=== PATIENT | female | born 1990 | race Caucasian/White ===

== ENCOUNTER 2023-06-30 20:48 | Outpatient (OUT) | payer BC, SELFPAY | END 2023-06-30 20:49 | disposition home or self-care (01) | LOC: SLEEP 20:49 | PROVIDERS: PCP Family Medicine; Visit Provider Family Medicine | DX: G47.33 Obstructive sleep apnea (adult) (pediatric) (principal); R06.83 Snoring | CPT/HCPCS: 95810 ==

== ENCOUNTER 2023-07-12 10:30 | Outpatient (OUT) | payer BC, SELFPAY ==
[2023-07-12 10:57] LABS: Basophils Percent Auto 0.6 % (0.2-2.0); Eosinophils Percent Auto 0.5 % (0.9-7.0); Hematocrit 38.5 % (36.0-48.0); Hemoglobin 12.6 g/dL (12.0-16.0); Immature Granulocytes Abs Auto 0.01 10^3/uL (0.00-0.03); Immature Granulocytes Pct Auto 0.2 % (0.0-0.5); Lymphocytes Percent Auto 30.6 % (20.5-60.0); Mean Corpuscular HGB Conc 32.7 g/dL (29.9-35.2); Mean Corpuscular Hemoglobin 29.2 pg (26.7-34.0); Mean Corpuscular Volume 89.3 fL (81.0-99.0); Mean Platelet Volume 9.6 fL (9.5-13.5); Monocytes Absolute Auto 0.5 10^3/uL (0.3-0.8); Monocytes Percent Auto 7.5 % (1.7-12.0); Neutrophils Absolute Auto 3.9 10^3/uL (1.4-6.5); Neutrophils Percent Auto 60.6 % (43.0-75.0); Platelet Count 315 10^3/uL (150-450); Red Blood Count 4.31 10^6/uL (4.20-5.40); Red Cell Distribution Width 12.9 % (11.0-15.0); White Blood Count 6.5 10^3/uL (4.0-11.0)
[2023-07-12 11:17] LABS: Estimated Average Glucose 97 mg/dL
[2023-07-12 11:30] LABS: Alanine Aminotransferase 24 U/L (14-59); Albumin Globulin Ratio 1.2; Albumin Level 3.8 g/dL (3.4-5.0); Alkaline Phosphatase 34 U/L (46-116); Anion Gap 10.5; Aspartate Amino Transferase 9 U/L (15-37); BUN Creatinine Ratio 8.3; Bilirubin Total 0.8 mg/dL (0.2-1.0); Calcium 8.3 mg/dL (8.5-10.1); Carbon Dioxide 28.9 mmol/L (21.0-32.0); Chloride 103 mmol/L (98-107); Chol HDL Ratio 2.9; Cholesterol 175 mg/dL (<=200); Estimated GFR (African America >60 (>=60); Estimated GFR (Non-African Ame >60 (>=60); Free T3 2.36 pg/mL (2.18-3.98); Globulin 3.3 g/dL; Glucose 94 mg/dL (74-106); HDL Cholesterol 60 mg/dL (40-60); LDL Cholesterol Calculated 102.8 mg/dL; Potassium 3.4 mmol/L (3.5-5.1); Sodium 139 mmol/L (136-145); Thyroid Stimulating Hormone 2.057 uIU/mL (0.358-3.740); Total Protein 7.1 g/dL (6.4-8.2); Triglycerides 61 mg/dL (<=150); VLDL CHOLESTEROL 12.2 mg/dL
[2023-07-13 12:07] LABS: Insulin 10.1 uIU/mL (2.6-24.9)
== END 2023-07-12 10:31 | disposition home or self-care (01) ==
LOC: LAB 10:31
PROVIDERS: PCP Family Medicine; Visit Provider Family Medicine
DX: Z00.00 Encounter for general adult medical examination without abnormal findings (principal); R73.09 Other abnormal glucose; E78.5 Hyperlipidemia, unspecified
CPT/HCPCS: 36415; 80053; 80061; 83036; 83525; 84436; 84443; 84481; 85025

== ENCOUNTER 2023-08-11 20:55 | Outpatient (OUT) | payer BC, SELFPAY | END 2023-08-11 20:56 | disposition home or self-care (01) | LOC: SLEEP 20:56 | PROVIDERS: PCP Family Medicine; Visit Provider Family Medicine | DX: G47.33 Obstructive sleep apnea (adult) (pediatric) (principal); F51.01 Primary insomnia | CPT/HCPCS: 95811 ==

== ENCOUNTER 2024-10-15 10:23 | Outpatient (OUT) | payer BC, SELFPAY ==
--- NOTE | 2024-10-15 10:42 | XR_ITS ---
The [address] [address] Patient Name: JW MARSH MRN: [id number] date: 1990 Sex: F Assigned Patient Location: LAB Current Patient Location: Accession/Order Number: [id number] Exam Date: 10/15/2024 10:35 Report Date: 10/18/2024 08:21 At the request of: NÉSTOR WHEELER Procedure: XR cervical spine 2-3V EXAMINATION: XR cervical spine 2-3V HISTORY: Neck Pain COMPARISON: No relevant comparison available. FINDINGS: BONES: Normal. No significant spondylosis, scoliosis, fracture, or visible bony lesion. DISC SPACES: Normal. No significant disc height narrowing, subluxation, or endplate abnormality. PARASPINOUS: Negative. No paraspinous abnormality is seen. OTHER: Negative. XR/XR cervical spine 2-3V IMPRESSION: No acute radiographic abnormality Electronically authenticated by: JUNITO ANAYA Date: 10/18/2024 08:21
--- OUTSIDE RECORDS SUMMARY | 2024-10-15 10:43 | XMS_ITS | CCD ---
Author Organization [facility] Care Team Providers Care Applications Intern Name Role Phone LINDY, DR MOORE Admitting Unavailable NILL, DR MOORE Attending Unavailable HOY, DR PALM Primary Care Unavailable NILL, DR MOORE Consulting Unavailable HOY, DR PALM Admitting Unavailable HOY, DR PALM Attending Unavailable HOY, DR PALM Primary Care Unavailable HOY, DR PALM Consulting Unavailable HOY, DR PALM Admitting Unavailable HOY, DR PALM Attending Unavailable HOY, DR PALM Primary Care Unavailable HOY, DR PALM Consulting Unavailable REFUGIO GUILLAUME Attending Unavailable ZALTJulio César, SHANTELL Referring Unavailable REFUGIO GUILLAUME Attending Unavailable CONSTANCE, SHANTELL Referring Unavailable MEINERT, RHEA P Referring Unavailable LIAM, NÉSTOR M Primary Care Unavailable NÉSTOR WARD M Primary Care Unavailable MEINERT, RHEA Referring Unavailable MEINERT, RHEA Referring Unavailable HOY, NÉSTOR M Primary Care Unavailable MEINERT, RHEA Referring Unavailable HOY, NÉSTOR M Primary Care Unavailable Problems Active Problems Problem Classification Problem Date Documented Da te Episodic/Chronic Menstrual disorders (1 source) Irregular menstruation, unspecified; Translations: [Irregular menstruation, unspecified] Onset: 07-14-2024 Chronic Nonmalignant breast conditions (3 sources) Nipple discharge; Translations: [Mastodynia] Onset: 05-11-2024 Episodic Unclassified (2 sources) CONTACT W/AND (SUSP) EXPOS COVID-19; Translations: [CONTACT W/AND (SUSP) EXPOS COVID-19] Onset: 04-14-2022 Viral infection (1 source) COVID-19; Translations: [COVID-19] Onset: 04-14-2022 Past or Other Problems Problem Classification Problem Date Documented Da te Episodic/Chronic Deficiency and other anemia (1 source) Anemia, unspecified; Translations: [ANEMIA UNSPECIFIED] Onset: 05-20-2021 Episodic Diabetes mellitus without complication (1 source) Other abnormal glucose; Translations: [OTHER ABNORMAL GLUCOSE] Onset: 05-20-2021 Episodic Malaise and fatigue (4 sources) Other fatigue; Translations: [OTHER FATIGUE] Onset: 05-11-2021 Episodic Other and unspecified benign neoplasm (4 sources) Benign lipomatous neoplasm of skin and subcutaneous tissue of head, face and neck; Translations: [MELE LIPOMAT COURTNEY SKIN SUBQ HEAD NECK] Onset: 06-13-2021 Episodic Residual codes; unclassified (1 source) Insomnia, unspecified; Translations: [INSOMNIA UNSPECIFIED] Onset: 05-20-2021 Episodic Unclassified (1 source) CONTACT W/AND (SUSP) EXPOS COVID-19; Translations: [CONTACT W/AND (SUSP) EXPOS COVID-19] Onset: 04-11-2022 Results Test Name Value Interpretation Reference Range Facility US NON OB TRANSVAGINALon US NON OB TRANSVAGINAL EXAMINATION: PELVIC ULTRASOUND 08/20/2024 2:43 pm TECHNIQUE: Transabdominal and transvaginal pelvic ultrasound using B-mode/melgar scaled imaging and color flow Doppler was obtained. COMPARISON: None HISTORY: ORDERING SYSTEM PROVIDED HISTORY: Irregular menses TECHNOLOGIST PROVIDED HISTORY: abnormal cycles, rule out PCOS FINDINGS: UTERUS: Anteverted with appropriate size, measuring 8.9 cm x 5.1 cm x 4.3 cm. Caesarean section scarring in anterior lower segment. Heterogeneous myometrium with indistinct junctional margins, patchy fanned-shaped posterior shadowing, and scattered punctate echogenic islands. No discrete myometrial lesion. Closed cervix with tiny nabothian cysts. Mildly dilated bilateral periuterine veins. ENDOMETRIAL STRIPE: Normal thickness, measuring 0.7 cm. RIGHT OVARY: Normal size, measuring 3.5 cm x 2.1 cm x 2.4 cm. Normal degree of vascularity. A few (10 or less) subcentimeter, subcapsular follicles (O-RADS 1). LEFT OVARY: Normal size, measuring 2.4 cm x 2.4 cm x 2.2 cm. Normal degree of vascularity. A few (10 or less) subcentimeter, subcapsular follicles (O-RADS 1). FREE FLUID: None visualized. IMPRESSION: 1. Myometrial features that can be seen with diffuse adenomyosis. 2. Normal sonographic appearance of the ovaries. Although several subcentimeter follicles are present in each ovary, the appearance is not overly suggestive of polycystic ovarian disease. 3. Mildly dilated periuterine veins can be seen with pelvic congestion syndrome. Interpreted by: Teresa Ron MD Signed by: Teresa Ron MD 08/21/24 Final result Normal [facility] US PELVIS COMPLETEon 024 US PELVIS COMPLETE EXAMINATION: PELVIC ULTRASOUND 08/20/2024 2:43 pm TECHNIQUE: Transabdominal and transvaginal pelvic ultrasound using B-mode/melgar scaled imaging and color flow Doppler was obtained. COMPARISON: None HISTORY: ORDERING SYSTEM PROVIDED HISTORY: Irregular menses TECHNOLOGIST PROVIDED HISTORY: abnormal cycles, rule out PCOS FINDINGS: UTERUS: Anteverted with appropriate size, measuring 8.9 cm x 5.1 cm x 4.3 cm. Caesarean section scarring in anterior lower segment. Heterogeneous myometrium with indistinct junctional margins, patchy fanned-shaped posterior shadowing, and scattered punctate echogenic islands. No discrete myometrial lesion. Closed cervix with tiny nabothian cysts. Mildly dilated bilateral periuterine veins. ENDOMETRIAL STRIPE: Normal thickness, measuring 0.7 cm. RIGHT OVARY: Normal size, measuring 3.5 cm x 2.1 cm x 2.4 cm. Normal degree of vascularity. A few (10 or less) subcentimeter, subcapsular follicles (O-RADS 1). LEFT OVARY: Normal size, measuring 2.4 cm x 2.4 cm x 2.2 cm. Normal degree of vascularity. A few (10 or less) subcentimeter, subcapsular follicles (O-RADS 1). FREE FLUID: None visualized. IMPRESSION: 1. Myometrial features that can be seen with diffuse adenomyosis. 2. Normal sonographic appearance of the ovaries. Although several subcentimeter follicles are present in each ovary, the appearance is not overly suggestive of polycystic ovarian disease. 3. Mildly dilated periuterine veins can be seen with pelvic congestion syndrome. Interpreted by: Teresa Ron MD Signed by: Teresa Ron MD 08/21/24 Final result Normal [facility] T3 FREE, T4 FREE AND TSHon 09-28-2023 Free T3 [Mass/Vol] 3.69 pg/mL Normal (2.32 - 6.09) [facility] Comment on above: Order Comment: FACIL ITY: [facility] [id number] Result Comment: HEMO LYSIS PRESENT; VALIDITY OF RESULTS SHOULD BE DETERMINED BY CLINICAL JUDGEMENT. Performed By: #### T SHT34, TESTOS #### [facility] [address] [facility], [address] T4 - FREE 1.11 UG/DL Normal (0.78 - 2.35) [facility] Comment on above: Order Comment: FACIL ITY: [facility] [id number] Performed By: #### T SHT34, TESTOS #### [facility] [address] [facility], [address] TSH Qn 1.77 m[IU]/L Normal (0.470 - 4.680) [facility] Comment on above: Order Comment: FACIL ITY: [facility] [id number] Performed By: #### T SHT34, TESTOS #### [facility] [address] [facility], [address] TOTAL TESTOSTERONEon 11-21-2 024 Testosterone [Mass/Vol] 42.8 ng/dL Normal (5.7 - 77.0) [facility] Comment on above: Result Comment: TEST OSTERONE, TOTAL FEMLAES: NORMAL MENSTRUAL CYCLES 5.71 - 77 NG/DL MALES: AGE 20 - 49 YEARS 132 - 813 NG/DL AGE >OR= 50 YEARS 102 - 623 NG/DL Performed By: #### T SHT34, TESTOS #### [facility] [address] [facility], [address] [facility] DIGITAL DIAGNOSTIC BILATERALon 05-17-2024 [facility] DIGITAL DIAGNOSTIC BILATERAL EXAMINATION: DIAGNOSTIC DIGITAL BILATERAL BREASTS MAMMOGRAM WITH TOMOSYNTHESIS; TARGETED ULTRASOUND OF THE LEFT BREAST 05/17/2024 7:49 am; 05/17/2024 8:23 am TECHNIQUE: Diagnostic mammography of the bilateral breasts was performed with tomosynthesis. 2D standard and 3D tomosynthesis combination imaging performed through both breasts. Computer aided detection was utilized in the interpretation of this exam.; Target ultrasound of the left breast was performed. VIEWS: MLO and craniocaudal views of both breasts. COMPARISON: None. Baseline study. HISTORY: ORDERING SYSTEM PROVIDED HISTORY: Nipple discharge TECHNOLOGIST PROVIDED HISTORY: left breast pain and nipple discharge, intermittent Intermittent pain upper-outer quadrant left breast. The patient has milky left nipple discharge but only upon manual expression. No spontaneous nipple discharge. TC score 10.46 FINDINGS: Mammogram: Both breasts are composed of scattered fibroglandular density. No skin thickening, nipple contour changes, suspicious calcifications, suspicious masses, areas of architectural distortion or significant interval changes are noted. Ultrasound: Targeted ultrasonography upper-outer left breast and retroareolar area left breast was performed. Appearance is unremarkable. No cystic or solid mass lesions. No imaging correlation of the patient's intermittent pain upper outer left breast or nipple discharge left breast on expression. IMPRESSION: No evidence of malignancy. Clinical follow-up for this patient who is 34 years old. Breast tissue can be either dense or not dense. Dense tissue makes it harder to find breast cancer on a mammogram and also raises the risk of developing breast cancer. Your breast tissue is NOT DENSE. Talk to your health care provider about breast density, risk for breast cancer and your individual situation. BI-RADS 1 BIRADS: BIRADS - CATEGORY 1 Negative, no evidence of malignancy. Clinical follow-up for this 34-year-old patient. OVERALL ASSESSMENT - NEGATIVE A letter of notification will be sent to the patient regarding the results. [employer] recommends annual mammograms for women 40 years and older. Interpreted by: Lela Magaña MD Signed by: Lela Magaña MD 05/17/24 Final result Normal [facility] US BREAST LIMITED LEFTon US BREAST LIMITED LEFT EXAMINATION: DIAGNOSTIC DIGITAL BILATERAL BREASTS MAMMOGRAM WITH TOMOSYNTHESIS; TARGETED ULTRASOUND OF THE LEFT BREAST 05/17/2024 7:49 am; 05/17/2024 8:23 am TECHNIQUE: Diagnostic mammography of the bilateral breasts was performed with tomosynthesis. 2D standard and 3D tomosynthesis combination imaging performed through both breasts. Computer aided detection was utilized in the interpretation of this exam.; Target ultrasound of the left breast was performed. VIEWS: MLO and craniocaudal views of both breasts. COMPARISON: None. Baseline study. HISTORY: ORDERING SYSTEM PROVIDED HISTORY: Nipple discharge TECHNOLOGIST PROVIDED HISTORY: left breast pain and nipple discharge, intermittent Intermittent pain upper-outer quadrant left breast. The patient has milky left nipple discharge but only upon manual expression. No spontaneous nipple discharge. TC score 10.46 FINDINGS: Mammogram: Both breasts are composed of scattered fibroglandular density. No skin thickening, nipple contour changes, suspicious calcifications, suspicious masses, areas of architectural distortion or significant interval changes are noted. Ultrasound: Targeted ultrasonography upper-outer left breast and retroareolar area left breast was performed. Appearance is unremarkable. No cystic or solid mass lesions. No imaging correlation of the patient's intermittent pain upper outer left breast or nipple discharge left breast on expression. IMPRESSION: No evidence of malignancy. Clinical follow-up for this patient who is 34 years old. Breast tissue can be either dense or not dense. Dense tissue makes it harder to find breast cancer on a mammogram and also raises the risk of developing breast cancer. Your breast tissue is NOT DENSE. Talk to your health care provider about breast density, risk for breast cancer and your individual situation. BI-RADS 1 BIRADS: BIRADS - CATEGORY 1 Negative, no evidence of malignancy. Clinical follow-up for this 34-year-old patient. OVERALL ASSESSMENT - NEGATIVE A letter of notification will be sent to the patient regarding the results. [employer] recommends annual mammograms for women 40 years and older. Interpreted by: Lela Magaña MD Signed by: Lela Magaña MD 05/17/24 Final result Normal [facility] FREE T3on 05-11-2024 Free T3 [Mass/Vol] 4.23 pg/mL High 2.50-3.90 [facility] Comment on above: Performed By: #### 3 016-3, 3051-0, 3024-7, 2842-3, 8099-4 #### [facility] ([id number]) [address] [place] [address] FREE T4on 05-11-2024 Free T4 [Mass/Vol] 0.94 ng/dL Normal 0.61-1.60 [facility] Comment on above: Performed By: #### 3 016-3, 3051-0, 3024-7, 2842-3, 8099-4 #### [facility] ([id number]) [address], [address] [place] [address] Prolactin [Mass/Vol]on 05-11 PROLACTIN 6.5 ng/mL Normal 3.3-26.7 [facility] Comment on above: Performed By: #### 3 016-3, 3051-0, 3024-7, 2842-3, 8099-4 #### [facility] ([id number]) [address], [address] [place] [address] THYROPEROXIDASE ABon 024 TPO Ab Qn 19 [IU]/mL High <10 [facility] Comment on above: Performed By: #### 3 016-3, 3051-0, 3024-7, 2842-3, 8099-4 #### [facility] ([id number]) [address], [address] [place] [address] TSH Qnon 05-11-2024 TSH 0.97 uIU/mL Normal 0.49-4.67 [facility] Comment on above: Performed By: #### 3 016-3, 3051-0, 3024-7, 2842-3, 8099-4 #### [facility] ([id number]) [address] [place] [address] Covid-19 PCR (CVDTB)on SARS-CoV-2 (COVID-19) RNA MANUELA+probe Ql (Unsp spec) Detected Critically abnormal NOT DETECTED [facility] Comment on above: Result Comment: This test is not yet approved or cleared by the [place] FDA. When there are no FDA-approved or cleared tests available, and other criteria are met, FDA can make tests available under an emergency access mechanism called an Emergency Use Authorization (EUA). The EUA for this test is supported by the [employer] and Human Service's declaration that circumstances exist to justify the emergency use of in vitro diagnostics for the detection and/or diagnosis of the virus that causes COVID-19. This EUA will remain in effect for the duration of the COVID-19 declaration justifying emergency of IVDs, unless it is terminated or revoked by the FDA (after which the test may no longer be used). Performed By: #### [facility] #### [facility] [address] [address] [address] Isael Simon Ambulatory Clinical Summaryo n 06-22-2021 Ambulatory Clinical Summary {[id number] Normal [facility] General Surgery Office/Clini c Noteon 06-22-2021 General Surgery Office/Clinic Note Chief Complaint post operative follow up HPI Staff 9 day post operative follow up post excisional biopsy lipoma left posterior neck. Incision well approximated without bleeding or drainage. History of Present Illness s/p excision recurrent left neck lipoma, doing well, mild soreness, no drainage. pathology consistent with lipoma. Review of Systems ROS - Provider Constitutional: no fever, no sweats, no weight loss. Eyes: no glasses, no blurred vision, no visual loss. ENMT: no dentures, no hoarseness, no swallowing difficulties, no hearing loss, no ear infection(s), no nose bleeds. Cardiovascular: normal blood pressure, no chest pain, regular heartbeat, no heart murmur. Respiratory: no shortness of breath, no cough, no asthma, no wheezing. Gastrointestinal: no nausea, no vomiting, no diarrhea, no constipation, no blood in stool, no change in bowel habits, no abdominal pain, no hepatitis. Genitourinary: no kidney stones, no urine infection, no dysuria. Musculoskeletal: no pain, no weakness. Skin: no changing moles, no rash, no skin lumps. Neurologic: no seizures, no epilepsy, no headache. Psychiatric: no emotional or psychiatric problem. Heme/Lymph: no bleeding problems, no anemia, no blood clots, no transfusions. Allergy/Immunologic: no swollen lymph nodes/glands, no IV drug abuse. Other: Additional ROS info: Except as noted in the above Review of Systems and in the History of Present Illness, all other systems have been reviewed and are negative or noncontributory. Physical Exam Vitals & Measurements T: 36.2 ?C (Temporal Artery) incision: healing well, minimal induration, no erythema or drainage, no ecchymoses. Assessment/Plan 1. Lipoma of neck (D17.0: Benign lipomatous neoplasm of skin and subcutaneous tissue of head, face and neck) doing well, call with problems/questions. Follow-up No qualifying data available Problem List/Past Medical History Ongoing Anxiety BMI 29.0-29.9,adult Headache, tension-type Insomnia Lipoma of neck Tendonitis of wrist, left Historical No qualifying data Procedure/Surgical History Excision of lipoma (06/13/2021), section (05/14/2020), Acetabular augmentation, Excision of lipoma, Tonsillectomy and adenoidectomy. Medications No active medications Allergies No Known Allergies No Known Medication Allergies Social History Alcohol - Denies Alcohol Use, 05/22/2021 Substance Abuse Current, Marijuana, 1-2 times per week, 05/22/2021 Tobacco Never (less than 100 in lifetime) Tobacco Use:. Never Smokeless Tobacco Use:., 06/22/2021 Family History Renal failure syndrome: Father. Immunizations Vaccine Date Status SARS-CoV-2 (COVID-19) mRNA BNT-162b2 vax 05/19/2021 Recorded SARS-CoV-2 (COVID-19) mRNA BNT-162b2 vax 04/28/2021 Recorded Normal [facility] Comment on above: Result Comment: Elec tronically Signed By: LINDY OSULLIVAN, Teresa Hickman\Date and Time Signed: 06/22/21 10:23 EDT Pathology Noteon 06-18-2021 Pathology Note [id number] #1.00CD:127 Normal [facility] Operative Reporton Operative Report [id number] #1.00CD:127 Normal [facility] Provider Letter [facility] [place] [facility] [place] 2021 JOSEPH MOISE, [address] [place] [address] Re: JW MARSH Date of : 1990 Thank you for your referral of Jw Marsh who was seen on consultation on May 22, 2021, for nodule posterior neck. An excision is planned. I have enclosed my consultation note for your review. I will be happy to follow Jw. Sincerely, Teresa Tovar MD General Surgery [facility] Consent for Procedure/Surger yon 05-24-2021 Consent for Procedure/Surgery [id number] #1.00CD:127 Normal [facility] Consenton 05-23-2021 Consent [id number]#1.00CD:127 Normal [facility] Historical Records Officeon 05-22-2021 Historical Records Office [id number] #1.00CD:127 Normal [facility] CBC AUTO DIFFon 05-11-2021 BASO # 0.0 103/ul Normal 0.0-0.1 [facility] Comment on above: Performed By: #### C BC #### [facility] [address] [id number] Sabrina Felisa Basophils/100 WBC (Bld) 0.6 % Normal 0.2-2.0 [facility] Comment on above: Performed By: #### C BC #### [facility] [address] [id number] Sabrina Felisa EO # 0.1 103/ul Normal 0.0-0.7 [facility] Comment on above: Performed By: #### C BC #### [facility] [address] [id number] Sabrina Felisa Eosinophils/100 WBC (Bld) 0.8 % Critically low 0.9-7.0 [facility] Comment on above: Performed By: #### C BC #### [facility] [address] [address] Sabrina Felisa Erythrocyte distribution width (RBC) [Ratio] 12.5 % Normal 11.0-15.0 [facility] Comment on above: Performed By: #### C BC #### [facility] [address] [place], [place] [phone] Sabrina Felisa Hematocrit (Bld) [Volume fraction] 43.1 % Normal 36.0-48.0 [facility] Comment on above: Performed By: #### C BC #### [facility] [address] [place] [address] Sabrina Felisa Hemoglobin (Bld) [Mass/Vol] 14.1 g/dL Normal 12.0-16.0 [facility] Comment on above: Performed By: #### C BC #### [facility] [address] [place] [address] Sabrina Felisa IG # 0.02 10e3/ul Normal 0.00-0.03 [facility] Comment on above: Performed By: #### C BC #### [facility] [address] [place] [address] Sabrina Felisa IG % 0.3 % Normal 0.0-0.5 [facility] Comment on above: Performed By: #### C BC #### [facility] [address] [place] [address] Sabrina Felisa LYMPH # 2.0 103/ul Normal 1.2-3.8 [facility] Comment on above: Performed By: #### C BC #### [facility] [address] [place] [address] Sabrina Roberto Lymphocytes/100 WBC (Bld) 27.9 % Normal 20.5-60.0 [facility] Comment on above: Performed By: #### C BC #### [facility] [address] [place], [place] [phone] Sabrinaimer Dasen MANUAL DIFF REQ NO Normal [facility] Comment on above: Performed By: #### C BC #### [facility] [address] [place], [place] [phone] Sabrina Felisa MCH (RBC) [Entitic mass] 29.3 pg Normal 26.7-34.0 [facility] Comment on above: Performed By: #### C BC #### [facility] [address] [place] [address] Sabrina Roberto MCHC (RBC) [Mass/Vol] 32.7 g/dL Normal 29.9-35.2 [facility] Comment on above: Performed By: #### C BC #### [facility] [address] [place], [place] [address] Sabrina Roberto MCV (RBC) [Entitic vol] 89.6 fL Normal 81.0-99.0 [facility] Comment on above: Performed By: #### C BC #### [facility] [address] [place], [place] [address] Sabrina Felisa MONO # 0.4 103/ul Normal 0.3-0.8 [facility] Comment on above: Performed By: #### C BC #### [facility] [address] [place], [place] [address] Sabrina Roberto Monocytes/100 WBC (Bld) 5.9 % Normal 1.7-12.0 [facility] Comment on above: Performed By: #### C BC #### [facility] [address] [place], [place] [address] Sabrina Felisa NEUT # 4.6 103/ul Normal 1.4-6.5 [facility] Comment on above: Performed By: #### C BC #### [facility] [address] [place], [place] [address] Sabrina Felisa Neutrophils/100 WBC (Bld) 64.5 % Normal 43.0-75.0 [facility] Comment on above: Performed By: #### C BC #### [facility] [address] [place], [place] [address] Sabrinaimer Roberto Platelet mean volume (Bld) [Entitic vol] 9.1 fL Critically low 9.5-13.5 [facility] Comment on above: Performed By: #### C BC #### [facility] [address] [place], [place] [address] Sabrina Felsia PLT 370 103/ul Normal 150-450 [facility] Comment on above: Performed By: #### C BC #### [facility] [address] [place], [place] [address] Sabrina Felisa RBC 4.81 106/ul Normal 4.20-5.40 [facility] Comment on above: Performed By: #### C BC #### [facility] [address] [place], [place] [address] Sabrina Roberto WBC 7.1 103/ul Normal 4.0-11.0 [facility] Comment on above: Performed By: #### C BC #### [facility] [address] [id number] Sabrina Roberto FREE THYROXINE INDEX T7on FTI 2.86 Normal [facility] Comment on above: Performed By: #### C MP, TSH, T7 #### [facility] [address] [place], [place] [address] Sabrina Roberto T3U 34.0 % Normal 23.5-40.5 [facility] [facility] Comment on above: Performed By: #### C MP, TSH, T7 #### [facility] [address] [place] [address] Sabrina Roberto T4 [Mass/Vol] 8.40 ug/dL Normal 5.53-11.00 [facility] [place] Comment on above: Performed By: #### C MP, TSH, T7 #### [facility] [address] [place], [place] [id number] Sabrina Roberto GLYCOHEMOGLOBIN A1Con 2020 ADA RECOMMENDATION ADA THERAPEUTIC TARGET 6.0 - 7.0 ACTION SUGGESTED > 7.0 Normal [facility] Comment on above: Performed By: #### A 1C #### [facility] [address] [place], [place] [id number] Sabrina Roberto Glucose [Mass/Vol] 105 mg/dL Normal [facility] Comment on above: Performed By: #### A 1C #### [facility] [address] [place], [place] [id number] Sabrina Roberto HbA1c (Bld) [Mass fraction] 5.3 % Normal <=6.0 [facility] Comment on above: Performed By: #### A 1C #### [facility] [address] [place], [place] [address] Sabrinaimer Dasen IRONon 05-11-2021 Iron [Mass/Vol] 84.0 ug/dL Normal 37.0-170.0 [facility] Comment on above: Performed By: #### I FERDINAND #### [facility] [address] [place], [place] [address] Sabrinaimer Dasen PROF 14(COMP METB)on 021 Albumin [Mass/Vol] 3.9 g/dL Normal 3.5-5.0 [facility] Comment on above: Performed By: #### C MP, TSH, T7 #### [facility] [address] [place], [place] [address] Sabrina Felisa Albumin/Globulin [Mass ratio] 1.1 {ratio} Normal [facility] Comment on above: Performed By: #### C MP, TSH, T7 #### [facility] [address] [place], [place] [address] Sabrina Felisa ALP [Catalytic activity/Vol] 52 U/L Normal 38-126 [facility] Comment on above: Performed By: #### C MP, TSH, T7 #### [facility] [address] [place], [place] [address] Sabrina Felisa ALT [Catalytic activity/Vol] 19 U/L Normal 9-52 [facility] Comment on above: Performed By: #### C MP, TSH, T7 #### [facility] [address] [place], [place] [address] Sabrina Felisa Anion gap [Moles/Vol] 13.7 mmol/L Normal [facility] Comment on above: Performed By: #### C MP, TSH, T7 #### [facility] [address] [place], [place] [address] Sabrina Felisa AST [Catalytic activity/Vol] 14 U/L Normal 14-36 [facility] Comment on above: Performed By: #### C MP, TSH, T7 #### [facility] [address] [place], [place] [address] Sabrina Felisa Bilirubin [Mass/Vol] 0.9 mg/dL Normal 0.2-1.3 [facility] Comment on above: Performed By: #### C MP, TSH, T7 #### [facility] [address] [address] Sabrina Felisa Calcium [Mass/Vol] 8.9 mg/dL Normal 8.4-10.2 [facility] Comment on above: Performed By: #### C MP, TSH, T7 #### [facility] [address] [place] [address] Sabrina Felisa Chloride [Moles/Vol] 105 mmol/L Normal 98-107 [facility] Comment on above: Performed By: #### C MP, TSH, T7 #### [facility] [address] [place] [address] Sabrina Felisa CO2 [Moles/Vol] 29.3 mmol/L Normal 22.0-30.0 [facility] Comment on above: Performed By: #### C MP, TSH, T7 #### [facility] [address] [place] [address] Sabrina Felisa Creatinine [Mass/Vol] 0.79 mg/dL Normal 0.52-1.04 [facility] Comment on above: Performed By: #### C MP, TSH, T7 #### [facility] [address] [place] [address] Sabrina Felisa EGFR-AF SWAZI =60 Normal >=60 [facility] Comment on above: Performed By: #### C MP, TSH, T7 #### [facility] [address] [place] [address] Sabrina Felisa EGFR-NON AF SWAZI >60 Normal >=60 [facility] Comment on above: Performed By: #### C MP, TSH, T7 #### [facility] [address] [place] [address] Sabrina Felisa Globulin (S) [Mass/Vol] 3.6 g/dL Normal [facility] Comment on above: Performed By: #### C MP, TSH, T7 #### [facility] [address] [place] [address] Sabrina Felisa Glucose [Mass/Vol] 97 mg/dL Normal 74-106 [facility] Comment on above: Performed By: #### C MP, TSH, T7 #### [facility] [address] [place], [place] [address] Sabrina Felisa Potassium [Moles/Vol] 4.0 mmol/L Normal 3.4-5.0 [facility] Comment on above: Performed By: #### C MP, TSH, T7 #### [facility] [address] [address] Sabrina Felisa Protein [Mass/Vol] 7.5 g/dL Normal 6.1-8.2 [facility] Comment on above: Performed By: #### C MP, TSH, T7 #### [facility] [address] [id number] Sabrina Felisa Sodium [Moles/Vol] 144 mmol/L Normal 137-145 [facility] Comment on above: Performed By: #### C MP, TSH, T7 #### [facility] [address] [place] [address] Sabrina Felisa Urea nitrogen [Mass/Vol] 7.0 mg/dL Normal 7.0-17.0 [facility] Comment on above: Performed By: #### C MP, TSH, T7 #### [facility] [address] [place] [address] Sabrina Felisa Urea nitrogen/Creatinine [Mass ratio] 8.9 mg/mg Normal [facility] Comment on above: Performed By: #### C MP, TSH, T7 #### [facility] [address] [place] [address] Sabrina Felisa TSHon 05-11-2021 TSH 1.525 uIU/mL Normal 0.470-4.680 [facility] Comment on above: Performed By: #### C MP, TSH, T7 #### [facility] [address] [place] [address] Sabrina Felisa TSH RANGE SEE BELOW Normal [facility] Comment on above: Result Comment: <0.3 4 UIU/ml HYPERTHYROID 0.34-5.60 UIU/ml EUTHYROID >5.60 UIU/ml HYPOTHYROID Performed By: #### C MP, TSH, T7 #### [facility] [address] [place] [address] Sabrina Felisa Physician Referralon 021 Physician Referral [phone] [id number] Normal [facility] Encounters Encounter Date Encounter Type Care Provider Facility Start: 08-20-2024 End: [facility]: 05-17-2024 End: 05-19-2024 [facility] Start: 05-11-2024 End: 05-11-2024 ambulatory [facility] Start: 07-29-2023 End: 07-29-2023 ambulatory REFUGIO GUILLAUME Not Available Start: 07-22-2023 End: 07-22-2023 ambulatory REFUGIO GUILLAUME Not Available Start: 04-11-2022 End: 04-11-[address] NÉSTOR WARD Facility:[facility] Start: 06-13-2021 End: 06-13-[address] TERESA TOVAR Facility:[facility] Start: 05-11-2021 End: 05-12-[address] NÉSTOR WARD Facility:[facility] Payers Date Payer Category Payer Unknown [id number] 2.16.84 [id number] 1992 Unknown [id number] 2.16.84 [id number] 1992 Unknown [id number] 2.16.84 [id number] 1992 Unknown [id number] [id number] 1992 Unknown [id number] [id number]. [id number] 1992 Unknown [id number] 2.16.8 [id number] 1992 Unknown [id number] 2.16.8 [id number] 1992 Unknown [id number] 2.16.8 [id number] 1992 Unknown [id number] 2.16. [id number] 1959 Unknown [id number] Clinical Note 06-13-2021 Note Date & Type Note Facility 06-13-2021 Note OPERATIVE NOTE OPERATION DATE: 06-13-21 ANESTHETIC:Local with 0.25% Marcaine plain. PREOPERATIVE DIAGNOSIS:Recurrent lipoma, left posterior neck. POSTOPERATIVE DIAGNOSIS:Same. PROCEDURE NAME:Excision biopsy of recurrent lipoma, left posterior neck. ESTIMATED BLOOD LOSS: Less than 5 mL. INDICATIONS AND CONSENT: The patient is a 31 year-old female status post excision of a lipoma, left posterior neck two years ago. She's gradually had recurrence of the area of the lipoma under the previous scar. Indications, risks, benefits, and alternatives of proceeding with reexcision under local anesthesia were explained extensively to the patient including the risk of bleeding, infection, scarring, pain, recurrence or need for further surgery. All of her questions were answered and informed consent was obtained. PROCEDURE: The patient was brought to the OR and placed in the right lateral decubitus position. The area was prepped and draped in the usual sterile fashion. It was anesthetized with 0.25% Marcaine plain. The previous incision was opened with the scalpel blade and carried down through subcutaneous tissue using sharp dissection. There was noted to be scarring and evidence of recurrent lipoma approximately 2.5 cm in greatest diameter. This was carefully dissected free from the scar and was sent off to Pathology. There was good hemostasis. The subcutaneous tissue was reapproximated with interrupted 3-0 Monocryl suture. The skin was then closed with running 4-0 subcuticular Monocryl sutures and skin glue. Sterile dressing was applied. Sponge and needle counts were correct x2 per nursing personnel. The patient tolerated the procedure well and was discharged to home n good condition. She is to followup in 1 week for wound check. cc:Dr. Ward. [facility] Signed and Approved by: DR TERESA TOVAR . 06/18/2021 19:31:00 [facility] Clinical Note 05-22-2021 Note Date & Type Note Facility 05-22-2021 Note Chief Complaint consultation for nodule posterior neck HPI Staff 31 year old female presents on consultation from Melissa Moise NP for nodule posterior neck. Had prior lipoma removal to this area January 2019. Feels shortly after previous removal, she noted a small lump that has slowly grown over time. Has not opened or drained. Denies this being painful. History of Present Illness 31 yo female referred for recurrent lipoma left posterior neck; removed 2 years ago, gradual increase in size; sore at times, no skin changes; no imaging; no injury to area or skin changes; denies asa or NSAID use. Review of Systems PHQ Score Initial Depression Screen Score: 0 ROS - Provider Constitutional: no fever, no sweats, no weight loss. Eyes: no glasses, no blurred vision, no visual loss. ENMT: no dentures, no hoarseness, no swallowing difficulties, no hearing loss, no ear infection(s), no nose bleeds. Cardiovascular: normal blood pressure, no chest pain, regular heartbeat, no heart murmur. Respiratory: no shortness of breath, no cough, no asthma, no wheezing. Gastrointestinal: no nausea, no vomiting, no diarrhea, no constipation, no blood in stool, no change in bowel habits, no abdominal pain, no hepatitis. Genitourinary: no kidney stones, no urine infection, no dysuria. Musculoskeletal: no pain, no weakness. Skin: no changing moles, no rash, yes skin lumps. Neurologic: no seizures, no epilepsy, no headache. Psychiatric: no emotional or psychiatric problem. Heme/Lymph: no bleeding problems, no anemia, no blood clots, no transfusions. Allergy/Immunologic: no swollen lymph nodes/glands, no IV drug abuse. Other: Additional ROS info: Except as noted in the above Review of Systems and in the History of Present Illness, all other systems have been reviewed and are negative or noncontributory. Physical Exam Vitals & Measurements T: 37.0 ?C (Temporal Artery) HR: 76(Peripheral) RR: 16 BP: 116/80 HT: 160.0 cm HT: 160 cm WT: 74.7 kg WT: 74.7 kg BMI: 29.18 HEENT: normal conjunctiva, sclera clear, no scleral icterus, EOM intact, PERRLA, oral mucosa moist without lesions. Neck: trachea midline, no mass, symmetric, no thyromegaly or nodules, no adenopathy Respiratory: lungs CTA, respirations non labored. Cardiovascular: regular rate and rhythm, no murmur, no pedal edema or varicosities. Lymphatic: no cervical adenopathy, Musculoskeletal: normal gait, digits and nails without infection, nodes, cyanosis, clubbing. Skin: no rashes, no lesions, no ulcers, left posterior neck with 2 cm subcutaneous nodule, mobile; superior and medial to scar Psychiatric/Neuro: oriented to time, place, person, judgement normal, affect appropriate for age, insight intact, no focal deficits. Tests: , review of old records completed, Discussed surgical options, risks, and possible complications with patient. Assessment/Plan 1. Lipoma of neck (D17.0: Benign lipomatous neoplasm of skin and subcutaneous tissue of head, face and neck) plan excision recurrent lipoma left posterior neck under local anesthesia; informed consent obtained. Follow-up No qualifying data available Problem List/Past Medical History Ongoing Anxiety BMI 29.0-29.9,adult Headache, tension-type Insomnia Lipoma of neck Tendonitis of wrist, left Historical No qualifying data Procedure/Surgical History section (05/14/2020), Acetabular augmentation, Excision of lipoma, Tonsillectomy and adenoidectomy. Medications No active medications Allergies No Known Allergies No Known Medication Allergies Social History Alcohol - Denies Alcohol Use, 05/22/2021 Substance Abuse Current, Marijuana, 1-2 times per week, 05/22/2021 Tobacco Never (less than 100 in lifetime) Tobacco Use:. Never Smokeless Tobacco Use:., 05/22/2021 Family History Renal failure syndrome: Father. Immunizations Vaccine Date Status SARS-CoV-2 (COVID-19) mRNA BNT-162b2 vax 05/19/2021 Recorded SARS-CoV-2 (COVID-19) mRNA BNT-162b2 vax 04/28/2021 Recorded [facility] Comment on above: Result Comment: Elec tronically Signed By: LINDY OSULLIVAN, Teresa Hickman\Date and Time Signed: 05/22/21 14:30 EDT Summary Purpose Family History No Family History Records FoundNo Family History Records FoundNo Family History Records FoundNo Family History Records FoundNo Family History Records FoundNo Family History Records FoundNo Family History Records Found Advance Directives No Advanced Directives Records FoundNo Advanced Directives Records FoundNo Advanced Directives Records FoundNo Advanced Directives Records FoundNo Advanced Directives Records FoundNo Advanced Directives Records FoundNo Advanced Directives Records Found Additional Source Comments INFORMATION SOURCE (unrecogn ized section and content) DATE CREATED AUTHOR 06/23/2021 Shawn Dalton [facility] DATE CREATED AUTHOR AUTHOR'S ORGANIZ ATION 04/14/2022 [facility] DATE CREATED AUTHOR AUTHOR'S ORGANIZ ATION 07/31/2023 [facility] DATE CREATED AUTHOR AUTHOR'S ORGANIZ ATION 05/12/2024 [facility] DATE CREATED AUTHOR AUTHOR'S ORGANIZ ATION 05/20/2024 [facility] DATE CREATED AUTHOR AUTHOR'S ORGANIZ ATION 08/02/2024 [facility] DATE CREATED AUTHOR AUTHOR'S ORGANIZ ATION 08/23/2024 [facility] FOR RECORDS PERTAINING TO PATIENTS WHO ARE OR HAVE BEEN ENROLLED IN A CHEMICAL DEPENDENCY/SUBSTANCEABUSE PROGRAM, SOME INFORMATION MAY BE OMITTED. This clinical summary was aggregated from multiple sources. Caution should be exercised in using it in the provision of clinical care. This summary normalizes information from multiple sources, and as a consequence, information in this document may materially change the coding, format and clinical context of patient data. In addition, data may be omitted in some cases. CLINICAL DECISIONS SHOULD BE BASED ON THE PRIMARY CLINICAL RECORDS. [facility]. provides no warranty or guarantee of the accuracy or completeness of information in this document.
== END 2024-10-15 10:24 | disposition home or self-care (01) ==
LOC: LAB 10:25
PROVIDERS: PCP Family Medicine; Visit Provider Family Medicine
DX: M54.2 Cervicalgia (principal)
CPT/HCPCS: 72040

== ENCOUNTER 2025-07-29 10:37 | Outpatient (OUT) | payer BC, SELFPAY ==
--- OUTSIDE RECORDS SUMMARY | 2024-07-29 10:00 | XMS_ITS ---
Author Organization [facility] [place] Address [address] [place] [address] Care Team Providers Care Optical Instrument Inspector Name Role Phone Sylvia Brock Primary Care Provider [phone] Provider, Lab Unavailable [phone] REASON FOR VISIT NM Social History Sex Assigned At : Social History Observation Description Sex Assigned At Female Encounters Encounter Location Date Provider Diagnosis [facility] [address] [place] [address] 07/29/2024 Lab Provider Plan Of Treatment No Information Progress Notes * MARSHAntionetteDOB: 2 (35 yo F)Acc No.[id number]:07/29/2024 UNLOCKED PROGRESS NOTE Progress Note Patient: Antionette HUERTA :?Lab ProviderDOB:1990???Age:34 Y???Sex: FemaleDate:4Phone:[phone]:[id number] [phone]:Brock Mittal In:02:57 PM ESTCheck Out:02:58 PM EST Subjective: * Chief Complaints: * 1 . NM. * Medical History: Objective: * Vitals: Assessment: Plan: * Treatment: * * Electronic signature of Lab Provider on 07/29/2025 at 10:39 AM ESTSign off status: PendingVisit Status:?CHK (Check Out) * Provider: [place] Provider Date: 09/28/2023 Generated for Printing/Faxing/eTransmitting on:?07/29/2025 10:39 AM EST
--- OUTSIDE RECORDS SUMMARY | 2024-11-26 08:10 | XMS_ITS ---
Author Organization [facility] in [place] Address [address] [place] [address] Care Team Providers Care Permit Coordinator Name Role Phone Sylvia Brock Primary Care Provider [phone] Provider, Lab Unavailable [phone] REASON FOR VISIT DK Social History Sex Assigned At : Social History Observation Description Sex Assigned At Female Encounters Encounter Location Date Provider Diagnosis [facility] [address] [place] [address] 11/26/2024 Lab Provider Plan Of Treatment No Information Progress Notes * SALMAAntionetteDOB: 2 (35 yo F)Acc No.[id number]:11/26/2024 UNLOCKED PROGRESS NOTE Progress Note Patient: Antionette HUERTA :?Lab ProviderDOB:1990???Age:34 Y???Sex: FemaleDate:11/26/2024Phone:[phone]:[address] [place]-[id number]:Brock Mittal In:01:11 PM ESTCheck Out:01:27 PM EST Subjective: * Chief Complaints: * 1 . DK. * Medical History: Objective: * Vitals: Assessment: Plan: * Treatment: * * Electronic signature of Lab Provider on 07/29/2025 at 10:40 AM ESTSign off status: PendingVisit Status:?CHK (Check Out) * Provider: [place]el [place] Provider Date: 0 11/26/2024 Generated for Printing/Faxing/eTransmitting on:?07/29/2025 10:40 AM EST
--- OUTSIDE RECORDS SUMMARY | 2025-05-30 09:15 | XMS_ITS ---
Author Organization [facility] [place] Address [address] [place] [address] Care Team Providers Care Human Resources Receptionist Name Role Phone Brock Ward Primary Care Provider [phone] Saji Campos Unavailable [phone] REASON FOR VISIT 6 Month shelleyPushpa persaud Social History Sex Assigned At : Social History Observation Description Sex Assigned At Female Encounters Encounter Location Date Provider Diagnosis Endocrinology [address] [place] [address] 05/30/2025 Saji Campos Plan Of Treatment No Information Progress Notes * Antionette MARSHDOB: 2 (35 yo F)Acc No.[id number]:05/30/2025 UNLOCKED PROGRESS NOTE Established Patient: Antionette HUERTA :?Saji Campos MDDOB:1990???Age:35 Y ???Sex:FemaleDate:05/30/2025Phone:[phone]:[address] [place]-[id number]:Brock Ward Subjective: * Chief Complaints: * 1 . 6 Month Pushpa rosa. * ROS: ???NEURO:?Headache?denies.?Numbness?denies.?SKIN:?Rash?denies.?General/Constitutional:?Loss of Appetite?denies.?Weakness?Denies.?Blurred vision?Denies.?Double vision?Denies.?Denies?Recent Weight Change. Sleep problems?denies.?Fatigue?denies.?Fever?denies.?Headache?denies.?Weight gain?denies.?Weight loss?denies.?Head/Neck:?Limitation of Neck Movement?denies.?Swollen glands denies.?Endocrine:?Overactive Thyroid (Hyperthyroid) ?denies.?Increased Thirst?denies.?Cold intolerance?denies.?Excessive sweating?denies.?Hair loss?denies.?Heat intolerance?denies.? * Medical History: Objective: * Vitals: * Examination: ???General Examinations: ?GENERAL APPEARANCE:?well developed, well nourished, in no acute distress.?ENT:?normocephalic, atraumatic.?EYES:?round, sclera non-icteric, pupils equal.?EARS:?normal.?ORAL CAVITY:?mucosa moist.?THROAT:?clear.?NECK:?neck supple, full range of motion, no cervical lymphadenopathy.?THYROID:?no visible swelling , no palpable masses.?LUNGS:?clear to auscultation bilaterally.?CARDIO:?regular rate and rhythm, S1, S2 normal, no murmurs.?ABDOMEN:?soft, nontender, nondistended, bowel sounds present, normal.?SKIN:?warm and dry, no suspicious lesions.?EXTREMITIES:?no clubbing, cyanosis, or edema.?? ? Assessment: Plan: * Treatment: * * Electronic signature of Saji Campos MD, [id number] on 07/29/2025 at 10:39 AM ESTSign off status: PendingVisit Status:?CANC (Cancelled) * Provider: Zainab Campos MD Date: 0 05/30/2025 Generated for Printing/Faxing/eTransmitting on:?07/29/2025 10:39 AM EST History and Physical Notes * Examination CategorySub-CategoryDetailNotesCategory NotesGeneral ExaminationsGENERAL APPEARANCE:well developed, well nourished, in no acute distressENT: normocephalic, atraumaticEYES:round, sclera non-icteric, pupils equalEARS:normal THROAT:clearNECK:neck supple, full range of motion, no cervical lymphadenopathy CARDIO:regular rate and rhythm, S1, S2 normal, no murmursLUNGS:clear to auscultation bilaterallyABDOMEN:soft, nontender, nondistended, bowel sounds present, normalNEUROLOGIC:SKIN:warm and dry, no suspicious lesionsEXTREMITIES:no clubbing, cyanosis, or edemaORAL CAVITY:mucosa moistTHYROID:no visible swelling , no palpable masses
--- OUTSIDE RECORDS SUMMARY | 2025-07-29 10:39 | XMS_ITS | Clinical Summary ---
Author Organization [employer] [facility] tem Address [id number] [address] [place] [address] Care Team Providers Care Photographic Aide Name Role Phone Kenny Ward MD Primary Care Provider [phone] Allergies No known active allergies Medications * This document contains information received from the source organization and may not represent a complete record from that organization. MedicationSigDispense QuantityRefillsLast FilledStart DateEnd DateStatus vitamins no.2 ( VITAMIN NO.2 ORAL) Take by mouth.Active ferrous sulfate 325 (65 FE) mg EC tablet Indications:Anemia affecting in third trimesterTake 1 tablet (325 mg total) by mouth 2 (two) times a day with meals. 60 tablet Active Additional Information Patient not taking.Reported on 05/23/2020 docusate sodium (COLACE) 100 mg capsule Take 1 capsule (100 mg total) by mouth 2 (two) times a day. 10 capsule 05/16/2020Active Additional Information Patient not taking.Reported on 05/23/2020 ibuprofen (ADVIL,MOTRIN) 800 mg tablet Take 1 tablet (800 mg total) by mouth every 8 (eight) hours as needed (cramping). 30 tablet 05/16/2020Active Additional Information Patient not taking.Reported on 06/27/2020 citalopram (CeleXA) 20 mg tablet Take 20 mg by mouth daily.Active Active Problems ProblemNoted DateDiagnosed DateDelivery of by section 05/16/2020Gestational hypertension, third hpfzkojpg31/08/2020 Overview (05/16/2020): Exacerbated by Methergine IM given intraop for uterine atony Anemia during in third tshoeerlw70/02/2020 Overview (02/08/2020): RX sent for iron twice daily Panic disorder without owbzxdqgrsx98/18/2019 Resolved Problems ProblemNoted DateDiagnosed DateResolved DateAbdominal pain during in third mxvjarecz50Primiparity Immunizations ImmunizationAdministration DatesNext ZycUGE4005/14/2020(Deferred: - pt immune)Tdap 05/14/2020()Tngpudygq96/06/2020(Deferred: - pt immune) Family History Medical HistoryRelationNameCommentsKidney diseaseFatherDepressionMaternal GrandmotherRelationNameStatusCommentsFatherMaternal Grandmother Social History Tobacco UseTypesPacks/DayYears UsedDateSmoking Tobacco: NeverSmokeless Tobacco: NeverAlcohol UseStandard Drinks/WeekCommentsYes0 (1 standard drink = 0.6 oz pure alcohol)occassionallySocial Connection and Isolation PanelAnswerDate RecordedIn a typical week, how many times do you talk on the phone with family, friends, or neighbors?More than three times a week05/02/2020How often do you get together with friends or relatives?Twice a week05/02/2020How often do you attend nondenominational or scientologist services?Never05/02/2020Do you belong to any clubs or organizations such as nondenominational groups, unions, fraternal or athletic groups, or school groups?No 05/02/2020How often do you attend meetings of the clubs or organizations you belong to?Not asked05/02/2020Are you , , , , never , or living with a partner?Qngkglp8805/02/2020AUDIT-CAnswerDate RecordedFrequency of Alcohol ConsumptionMonthly or less02/23/2019Average Number of Drinks1 or Frequency of Binge DtzeyajrRephv09/18/2019Overall Financial Resource Strain (CARDIA)AnswerDate RecordedHow hard is it for you to pay for the very basics like food, housing, medical care, and heating?Not hard at all05/02/2020PHQ-2AnswerDate RecordedTotal Nqwco223[facility] [place] of Occupational Health - Occupational Stress QuestionnaireAnswerDate RecordedDo you feel stress - tense, restless, nervous, or anxious, or unable to sleep at night because yourmind is troubled all the time - these days?Not at all 05/02/2020Exercise Vital SignAnswerDate RecordedOn average, how many days per week do you engage in moderate to strenuous exercise (like a brisk walk)?7 days 05/02/2020On average, how many minutes do you engage in exercise at this level? 20 min05/02/2020PRAPARE - TransportationAnswerDate RecordedIn the past 12 months, has lack of transportation kept you from medical appointments or from getting medications?No05/02/2020In the past 12 months, has lack of transportation kept you from meetings, work, or from getting things needed for daily living?No05/02/2020Edinburgh Depression ScaleAnswerDate Recorded Egnar Depression Scale Jclmp787The thought of harming myself has occurred to me.Never06/27/2020ChildcareAnswerDate RecordedDo problems getting school childcare attendant make it difficult for you to work or study?No05/02/2020 EmploymentAnswerDate RecordedDo you need help finding a local career center and/or a training program?No05/02/2020Purpose - LifeAnswerDate RecordedPurpose and direction in jfwuYsohwcy99/11/2021CommentsNoSex and Gender InformationValueDate RecordedSex Assigned at TrevpWsdyfu48/21/2019 1:14 PM EDT Legal LraGpuddk87/06/2015 11:48 AM EDTGender ZdggacljQqwaxa32/21/2019 1:14 PM EDTSexual ZvsmcbizvgpKavpmsza14/21/2019 1:14 PM EDT Last Filed Vital Signs Vital SignReadingTime TakenCommentsBlood Sjtbtogj064/7807 2:08 PM EDT Iajvt0172 7:35 AM GEHMsqzttfhpos36.7 ??C (98.1 ??F)05/16/2020 7:35 AM EDTRespiratory Kops4384 7:35 AM EDTOxygen Tugoeqvsik67%05/15/2020 7:59 AM EDTInhaled Oxygen Concentration--Tslsmx79.5 kg (162 lb)03/28/2021 2:08 PM EDT Uhihil523 cm (5' 3 )03/28/2021 2:08 PM EDTBody Mass Index28.707 2:08 PM EDT Plan of Treatment Health MaintenanceDue DateLast DoneCommentsDTaP,Tdap and Td Vaccines (6 - Tdap) , 08/15/1993, 1990, Additional history existsTobacco Zrqvnvurh16/28/2004Adult BMI Hssoxxibl86/28/2010Depression Uzmdorkzy91/20/2021 06/27/2020COVID-19 Vaccine ( season)/09/2021, 05/19/2021, 04/28/2021Influenza Rzmisyg53Pap Smear610/12/2022, 06/11/2023, 10/14/2019 Medical Devices Not on file Procedures Procedure NamePriorityDate/TimeAssociated DiagnosisCommentsPAP SMEARRoutine 10/14/2019 10:28 AM EST Cervical smear, as part of routine gynecological examination 11 weeks gestation of from Last 3 Months or Most Recently Relevant to Health Maintenance Results * Pap Smear (10/14/2019 10:28 AM EST)Specimen (Source)Anatomical Location / LateralityCollection Method / VolumeCollection TimeReceived Time10/14/2019 10:28 AM EST10/14/2019 12:08 PM EST Narrative COPATH - 10/18/2019 1:59 PM EST [facility] ? [address] ? [place] [address] ? Gynecologic Cytology Consultation ? Patient Name: ANTIONETTE MARSH : 1990 (Age: 29) Gender: F Taken: 10/14/2019 Reported: 10/18/2019 Physician(s): LINK Solorio ([phone]) Copy To: ?? [facility] Rec. #: [id number] Acct: # [id number] Final Cytologic Interpretation ThinPrep Pap Test (Cervical): Satisfactory for evaluation. A transformation zone component is present. NEGATIVE FOR INTRAEPITHELIAL LESION OR MALIGNANCY. ?? [facility] [place]/10/18/2019 Interpretation performed at [facility], [address] [place] [address], License number: [id number]. Electronically Signed Out By ?JAMAR Loyd(ASCP) Date of Last Menstrual Period: ? 07/29/2019 Other Clinical Conditions: Z01.419 Client Support Manager exam wo/abn findings Z3A.11 Source of Specimen ??ThinPrep Pap Test (Cervical) ? Thin Prep Pap (FOREIGN STUDENT ADVISER) Fee Code(s): ?? G0145 The Pap test is a screening test with an inherent, but low, probability of error. The Pap test is primarily effective for the diagnosis and prevention of squamous cell carcinoma. Regular screening iscritical for prevention. ThinPrep liquid-based slides, which meet the Financial Business Analyst criteria for automated screening, have been screened by the ThinPrep Imaging System (as of 05/25/07) along with an additional manual rescreening by a material attendant and, if indicated, by a pathologist. Authorizing ProviderResult TypeResult StatusLeana MAZA PATHOLOGY/CYTOLOGY ORDERABLESFinal ResultPerforming OrganizationAddress City/State/ZIP CodePhone Number COPATH from Last 3 Months or Most Recently Relevant to Health Maintenance Insurance * Guarantor: Antionette Marsh TypeRelation to PatientDate of BirthPhoneBilling AddressThird Constitution Party OvbqginmmPmcq1990 [facility] [place] [address] Advance Directives * Full Code (Latest Code Status on File) Date ActivatedDate InactivatedComments05/13/2020 12:13 PM05/16/2020 3:42 PM Care Teams Team MemberRelationshipSpecialtyStart DateEnd Date Kenny Ward MD PCP - GeneralFamily Medicine01/13/19
--- OUTSIDE RECORDS SUMMARY | 2025-07-29 10:40 | XMS_ITS | Clinical Summary ---
Author Organization [facility] Address [address] [place] [address] Care Team Providers Care Asset Liability Analyst Name Role Phone Kenny Ward MD Primary Care Provider [phone] Active Problems ProblemNoted DateDiagnosed DateBilateral hip pain06/17/2023ongenital partial dislocation of hip, bilateral ([facility])06/17/2023 Family History Medical HistoryRelationNameCommentsHypertensionFatherRelationNameStatusComments FatherAliveMotherAlivePaternal GrandfatherAlivePaternal GrandmotherAlive Social History Tobacco UseTypesPacks/DayYears UsedDateSmoking Tobacco: Unknown Tobacco Cessation:Counseling Given: Not Answered Alcohol UseStandard Drinks/WeekCommentsDefer0 (1 standard drink = 0.6 oz pure alcohol)CommentsUnknownSex and Gender InformationValueDate RecordedSex Assigned at BirthNot on fileLegal SfbPoehse28/15/2023 7:29 PM EDTGender Identity Not on fileSexual OrientationNot on file Plan of Treatment Not on file Insurance Care Teams Team MemberRelationshipSpecialtyStart DateEnd Kenny Ward MD [facility] Glxdhvwc12/9/23
--- OUTSIDE RECORDS SUMMARY | 2025-07-29 10:40 | XMS_ITS | Clinical Summary ---
Author Organization [facility] Address [address], [address] [place] [address] Care Team Providers Care Universal Banker Name Role Phone Kenny Ward MD Primary Care Provider [phone] Allergies No known active allergies Medications No known medications Active Problems ProblemNoted DateDiagnosed KxjvLtgxbeeejnm77/16/2024 Overview (08/23/2024): Signs on pelvic U/S as well as pelvic congestion syndrome Irregular pkmwrk7707/14/2024 Overview (08/23/2024): Pelvic U/S not suggestive of PCOS, offered testosterone blood draw order Cycles 34 days Family History Medical HistoryRelationNameCommentsKidney DiseaseFatherhas had transplantThyroid DiseaseMotherStephanie LewisUnknownMotherStephanie LewisHypothyroidismRelation NameStatusCommentsFatherMotherStephanie Gordon Social History Tobacco UseTypesPacks/DayYears UsedDateSmoking Tobacco: NeverSmokeless Tobacco: NeverAlcohol UseStandard Drinks/WeekCommentsYes0 (1 standard drink = 0.6 oz pure alcohol)Humiliation, Afraid, Rape, and Kick questionnaireAnswerDate Recorded Within the last year, have you been afraid of your partner or ex-partner?No 06/11/2023Within the last year, have you been humiliated or emotionally abused in other ways by your partner or ex-partner?No06/11/2023Within the last year, have you been kicked, hit, slapped, or otherwise physically hurt by your partner or ex-partner?No06/11/2023Within the last year, have you been raped or forced to have any kind of sexual activity by your partner or ex-partner?No06/11/2023 Overall Financial Resource Strain (CARDIA)AnswerDate RecordedHow hard is it for you to pay for the very basics like food, housing, medical care, and heating?Not very hard06/11/2023HQ-2AnswerDate RecordedPHQ-9 Total Zuvrr121Hunger Vital SignAnswerDate RecordedWithin the past 12 months, you worried that your food would run out before you got the money to buymore.Never true06/11/2023 Within the past 12 months, the food you bought just didn't last and you didn't have money to get more.Never true06/11/2023RAPARE - TransportationAnswerDate RecordedIn the past 12 months, has lack of transportation kept you from medical appointments or from getting medications?No06/11/2023In the past 12 months, has lack of transportation kept you from meetings, work, or from getting things needed for daily living?No06/11/2023Housing Stability Vital SignAnswerDate RecordedUnable to Pay for Housing in the Last YearNot on file04/25/2024Number of Times Moved in the Last YearNot on file04/25/2024t any time in the past 12 months, were you homeless or living in a prison (including now)?No04/25/2024 Food InsecurityAnswerDate RecordedWithin the past 12 months, you worried that your food would run out before you got the money to buymore.Within the past 12 months, the food you bought just didn't last and you didn't have money to get more.regnantCommentsNoSex and Gender InformationValue Date RecordedSex Assigned at BirthNot on fileLegal NmhLmmvye62/16/2023 9:20 AM EDTGender IdentityNot on fileSexual OrientationNot on file Last Filed Vital Signs Vital SignReadingTime TakenCommentsBlood Jsvzjafe917/8011/02/2024 1:51 PM EST Cafog819704/26/2024 7:48 AM EDTTemperature--Respiratory Rate--Oxygen Saturation-- Inhaled Oxygen Concentration--Hjsgyh57.5 kg (173 lb)07/14/2024 1:51 PM ESTHeight 160 cm (5' 3 )07/14/2024 1:51 PM ESTBody Mass Index30.6507/14/2024 1:51 PM EST Plan of Treatment Health MaintenanceDue DateLast DoneCommentsDTaP/Tdap/Td vaccine (6 - Tdap) , 08/15/1993, 1990, Additional history existsVaricella vaccine (1 of 2 - 13+ 2-dose series)02/02/2005HIV zvcxoh2702/02/2007Hepatitis C sxnczp3102/02/2010Hepatitis B vaccine (1 of 3 - 19+ 3-dose series)02/02/2011Flu vaccine (#1)04/08/2025Depression Chruel47508/OVID-19 Vaccine (2024- season)501/09/2021, 05/19/2021, 1Pap smear06/11/2026 06/11/2023ervical cancer nfvibs6606/11/2028HPV (without or with Pap)06/11/2028 06/11/2023Hib vaccineAged Out1992, 1992, 1992No longer eligible based on patient's age to complete this topicPolio vaccineCompleted 03/09/1997, 08/15/1993, 1990, Additional history existsHPV vaccine (No Doses Required)CompletedHepatitis A vaccineAged OutNo longer eligible based on patient's age to complete this topicMeningococcal (ACWY) vaccineAged OutNo longer eligible based on patient's age to complete this topicMeningococcal B vaccineAged OutNo longer eligible based on patient's age to complete this topic Pneumococcal 0-49 years VaccineAged OutNo longer eligible based on patient's age to complete this topic Procedures Procedure NamePriorityDate/TimeAssociated DiagnosisCommentsHUMAN PAPILLOMAVIRUS (HPV) DNA PROBE THIN PREP HIGH NMUDCwopomu89/04/2023 12:00 AM EDT INSPECTOR PACKAGER WEDKHDNOUgzdsnu53/04/2023 12:00 AM EDT from Last 3 Months or Most Recently Relevant to Health Maintenance Results * Human papillomavirus (HPV) DNA probe thin prep high risk (06/11/2023 12:00 AM EDT)ComponentValueRef RangeTest MethodAnalysis TimePerformed AtPathologist SignatureSpecimen DescriptionCERVICAL XAUCLDYB31/04/2023 12:00 AM EDTMERCY LABORATORIESHPV Sample.THIN PREP06/11/2023 12:00 AM EDTMERCY LABORATORIESHPV, Genotype 16Not DetectedNot Kkjmxhat21/04/2023 12:00 AM EDTMERCY LABORATORIES HPV, Genotype 18Not DetectedNot Rseotwsh35/04/2023 12:00 AM EDTMERCY LABORATORIESHPV, High Risk OtherNot DetectedNot Odjvtliz81/04/2023 12:00 AM EDTMERCY LABORATORIESHPV, Rstueocrmulsli30/04/2023 12:00 AM EDTMERCY LABORATORIESComment: This test amplifies and detects DNA of 14 high-risk HPV types associated with cervical cancer and its precursor lesions (HPV types 16,18, 31, 33, 35, 39, 45, 51, 52, 56, 58, 59, 66, and 68). ? Sensitivity may be affected by specimen collection methods, stage of infection, and the presence of interfering substances. Results should be interpreted in conjunction with other available laboratory and clinical data. A negative high-risk HPV result does not exclude the possibility of future cytologic HSIL or underlying CIN2-3 or cancer. ? This test is intended for medical purposes only and is not valid for the evaluation of suspected sexual abuse or for other forensic purposes. Specimen (Source)Anatomical Location / LateralityCollection Method / Volume Collection TimeReceived TimeCERVICAL ROORYVWD86/04/2023 Narrative Authorizing ProviderResult TypeResult StatusLeyaneth Felix SPORTS ANCHOR - CNMHEMATOLOGY ORDERABLESFinal ResultPerforming OrganizationAddressCity/State/ZIP CodePhone Number [facility] [place] [id number] [place] [address], [facility] [phone] * INSPECTOR PACKAGER Cytology (06/11/2023 12:00 AM EDT)ComponentValueRef RangeTest Method Analysis TimePerformed AtPathologist SignatureCytology ReportPath Number: [id number] DIAGNOSIS Imaged ThinPrep Pap - Cervical (1 monolayer slide): Specimen Adequacy: ? Satisfactory for evaluation. ? - Endocervical/transformation zone component present. Descriptive Diagnosis: ? Negative for intraepithelial lesion or malignancy. ?? Cytotech Screener: ??SS4 Electronically Signed Out JAMAR Ruvalcaba(ASCP) ss4/06/18/2023 Procedure/Addendum HPV Procedure Report ? Date Ordered: ? 06/12/2023 ? Status: Signed Out ? Date Complete: ? 06/13/2023 ? By: System Interface ? Date Reported: ? 06/13/2023 ? Sample: ??HPV Type 16 ?Result: ?? Not Detected ?Ref Range: (Not Detected) Sample: ??HPV Type 18 ?Result: ?? Not Detected ?Ref Range: (Not Detected) Sample: ??Other High Risk HPV ?Result: ?? Not Detected ?Ref Range: (Not Detected) Sample: ??HPV Interp ?Result: ? Ref Range: (Not Detected) This test amplifies and detects DNA of 14 high-risk HPV types associated with cervical cancer and its precursor lesions (HPV types 16,18, 31, 33, 35, 39, 45, 51, 52, 56, 58, 59, 66, and 68). ? Sensitivity may be affected by specimen collection methods, stage of infection, and the presence of interfering substances. Results should be interpreted in conjunction with other available laboratory and clinical data. A negative high-risk HPV result does not exclude the possibility of future cytologic HSIL or underlying CIN2-3 or cancer. ? This test is intended for medical purposes only and is not valid for the evaluation of suspected sexual abuse or for other forensic purposes. Performed at [facility], [address] [place] [address] ??[phone]. ?? Source of Specimen: A: Imaged ThinPrep Pap - Cervical (1 monolayer slide) HPV Reflex?......................HPV Regardless Clinical History Z01.419 Routine rn obgyn exam without abnormal findings Co-Test: ??ThinPrep Pap with high risk HPV testing Processing Lab: [address] [id number] Interpretation performed at [address] [id number] This Pap Test has been evaluated with the assistance of the ThinPrep Pap Test Imaging System. The Pap smear is a screening test primarily for squamous epithelial lesions, which is subject to both false negative and false positive results. Your patient should be reminded to consult you immediately if she experiences any suspicious signs or symptoms, regardless of her Pap smear result. GYNECOLOGIC CYTOLOGY REPORT Patient Name: ANTIONETTE MARSH [facility] Rec: [id number] [facility] ??[facility] ANATOMIC PATHOLOGY [address] [place] [address]. ??[place], [place] [address] bON SassorSpecimen (Source)Anatomical Location / LateralityCollection Method / VolumeCollection TimeReceived Time CERVICAL XJXFEAPF59/01/2023 8:26 AM EDT Narrative Authorizing ProviderResult TypeResult StatusLeyaneth Felix SPORTS ANCHOR - CN PATHOLOGY/CYTOLOGY ORDERABLESFinal ResultPerforming OrganizationAddress City/State/ZIP CodePhone Number [employer] [address] [place] [address], [facility] [phone] [facility] Sassor from Last 3 Months or Most Recently Relevant to Health Maintenance Insurance Advance Directives TypeDate RecordedPatient RepresentativeExplanationACP-MOLST06/11/2023 1:12 [facility] policy Care Teams Team MemberRelationshipSpecialtyStart DateEnd Date Kenny Ward MD [address] [place] [address] PCP - GeneralFamily Dkpxasxk10/4/23
--- OUTSIDE RECORDS SUMMARY | 2025-07-29 10:40 | XMS_ITS | Patient Health Record ---
Author Organization [facility] in [place] Address [address] [place] [address] Care Team Providers Care Marketing Database Coordinator Name Role Phone Brock Wheeler Primary Care Provider Provider, Lab Unavailable [phone] Felicelouise Saji Unavailable [phone] Allergies No Known Allergies Results Component Value Reference Range Notes T4 FREE and TSH Reviewed date:11/28/2024 01:35:58 PM Interpretation: Performing Lab:[facility], [address] [place], [address] [phone] Notes/Report: FACILITY: [facility] [id number] T4 - FREE 1.17 (0.78 - 2.35) UG/DL hTSH1.70(0.470 - 4.680) mIU/LT3 FREE, T4 FREE and TSH Reviewed date:07/30/2024 11:15:10 AM Interpretation: Performing Lab:[facility], [address] [place], [place], [id number] Notes/Report: FACILITY: [facility] [id number] - FREE3.69(2.32 - 6.09) PG/ML CLINICAL JUDGEMENT. HEMOLYSIS PRESENT; VALIDITY OF RESULTS SHOULD BE DETERMINED BY T4 - FREE1.11(0.78 - 2.35) UG/DLhTSH1.77(0.470 - 4.680) mIU/LTESTOSTERONE, TOTAL Reviewed date:07/30/2024 11:15:04 AM Interpretation: Performing Lab:[facility], [address] [place], [address] Notes/Report: TESTOSTERONE, TOTAL FEMLAES: NORMAL MENSTRUAL CYCLES 5.71 - 77 NG/DL MALES: AGE 20 - 49 YEARS 132 - 813 NG/DL AGE >OR= 50 YEARS 102 - 623 NG/DL FACILITY: [facility] [id number](5.7 - 77.0) NG/DLXR cervical spine 2-3V Reviewed date:10/18/2024 07:22:45 PM Interpretation: Performing Lab: Notes/Report: Source Facility: [place] [address] XRay Report Signed Patient: JW MARSH MR#: [id number] : 1990 Acct:[id number] Age/Sex: 34 / F ADM Date: 10/15/24 Loc: LAB Attending Dr: Néstor Wheeler M.D. Ordering Physician: Néstor Wheeler M.D. Date of Service: 10/15/24 Procedure(s): XR cervical spine 2-3V Accession Number(s): [id number] cc: Néstor Wheeler M.D. [place] [address] Patient Name: JW MARSH MRN: [id number] date: 1990 Sex: F Assigned Patient Location: LAB Current Patient Location: Accession/Order Number: [id number] Exam Date: 10/15/2024 10:35 Report Date: 10/18/2024 08:21 At the request of: NÉTSOR WHEELER Procedure: XR cervical spine 2-3V EXAMINATION: XR cervical spine 2-3V HISTORY: Neck Pain COMPARISON: No relevant comparison available. FINDINGS: BONES: Normal. No significant spondylosis, scoliosis, fracture, or visible bony lesion. DISC SPACES: Normal. No significant disc height narrowing, subluxation, or endplate abnormality. PARASPINOUS: Negative. No paraspinous abnormality is seen. OTHER: Negative. XR/XR cervical spine 2-3V IMPRESSION: No acute radiographic abnormality Electronically authenticated by: JUNITO ANAYA Date: 10/18/2024 08:21 Dictated By: Junito Anaya M.D. Signed By: 10/18/24823 DD/ 0 TD/TT: Tubing Machine Tender: Reason For Referral Diagnosis 1 Lipoma (D17.9) Referral Organization [facility] Referring Provider First Name Brock Referring Provider Last Name Sylvia Referring Provider [facility] Referred Provider Reagan Montes Referred Provider Specialty Plastic and Reconstructive Surgery Referral Priority Routine Medications Medication SIG (Take, Route, Frequency, Duration) Notes Start Date End Date Status Whole Food Multivitamin B, calcium, folate, iodine, sodium, niacin, mg,ActiveVitamin B Complex -as directed OrallyActive Social History Tobacco Use: Social History Observation Description Date Details (start date - stop date) Never Smoker NA - NA Sex Assigned At : Social History Observation Description Sex Assigned At Female Tobacco Use/Smoking Question Answer Notes Patient is a nonsmoker Alcohol Screen (Audit-C) Question Answer Notes Did you have a drink containing alcohol in the p ast year? No Lnlmqt3CamnfkqaxxdavjPhszxxtoQFGRK-G (Standard) Question Answer Notes Did you have a drink containing alcohol in the p ast year? Yes How often did you have six or more drinks on one occasion in the past year?Never (0 point)How many drinks did you have on a typical day when you were drinking in the past year?1 or 2 drinks (0 point)How often did you have a drink containing alcohol in the past year?Monthly or less (1 point)Qglrjh6AfkehzcqvjnowlTmrtaojf Problems Problem Type SNOMED Code ICD Code Onset Dates Problem Status W/U Status Risk Notes Problem Obstructive sleep ap reanna syndrome (disorder) (13197507) Obstructive sleep apnea (adult) (pediatric) (G47.33) ActiveconfirmedProblemAnxiety disorder (668677291)Anxiety disorder, unspecified (F41.9)ActiveconfirmedProblemInsomnia (271592734)Insomnia, unspecified (G47.00) ActiveconfirmedProblemSnoring (76981707)Snoring (R06.83)ActiveconfirmedProblem Neck pain (49264433)Neck pain (M54.2)ActiveconfirmedProblemWell adult (864398365)Well adult (Z00.00)ActiveconfirmedProblemIrregular menstrual cycle (09377306)Irregular menstrual cycle (N92.6)ActiveconfirmedProblemHashimoto's thyroiditis (31016463)Keyon's thyroiditis (E06.3)Activeconfirmed Vital Signs Heart Rate 83 /min 11/26/2024 Blood pressure siwnaglje10 mm Hg11/26/20241192Qbbxbx88 in11/26/2024lood pressure wwsltssy469 mm Hg11/26/20240631Pdlqpy882 lbs11/26/2024BMI30.11 kg/m211/26/2024 Encounters Encounter Location Date Provider Diagnosis [facility] [address] [place] [address] 10/15/2024 Rbock Hoy Neck pain M54.[address] [place] [address] 11/26/2024 Maisoon Torfah Keyon's thyroiditis E06.[address] [place] [address] 07/29/2024 Maisoon Torfah Keyon's thyroiditis E06.3 and Irregular menstrual cycle N92.6 [facility] [address] [place] [address] 07/29/2024 Lab Provider [facility] [address] [place] [address] [place] [address]/03/2025[facility] [place] [address]/06/20[facility] [place] [address]/07/2025Doug Hoy [address] [place] [address]/ Maisoon Torfah Assessments Encounter Date Diagnosis (ICD Code) Assessment Notes Treatment Notes Treatment Clinical Notes Section Notes 07/29/2024 Keyon's thyroiditis (ICD-10 - E06.3) positive TPO with normal TFTs07/29/2024Irregular menstrual cycle (ICD-10 - N92.6) asked patient to see obgyn for trabvaginal US due to concern for PCOs no hirsutism. 11/26/2024Hashimoto's thyroiditis (ICD-10 - E06.3)postive TPO with normal thyroid levels. No treatment recommended for now unless patient considers to concieve. If she plans to get , will add LT4 25 mcg daily10/15/2024Neck pain (ICD-10 - M54.2)10/15/2024Lipoma (ICD-10 - D17.9) Plan Of Treatment Pending Test Test Name Order Date CMP (COMPLETE METABOLIC PANEL) 3 HEMOGLOBIN A1C (GLYCO) 05/19/2023 LIPID PANEL (CHOL/TRIG/HDL/LDL) 05/19/20 23 CBC WITH DIFF 05/19/2023 Sleep study - Diagnostic Polysonogram Insulin Level 05/19/2023 THYROID PANEL (T4/TSH/FREE T3) 3 Insurance Providers Payer Name Payer Address Payer Phone Subscriber Number Group Number Insured Name Patient Relationship to Insured Coverage Start Date Coverage End Date [employer] [address] [place] [address] [id number] Bipin Marsh Spouse - patient is the spouse of the insured 3 Medical (General) History Medical History History ICD Code Recurrent URI's TendinitisNevusAphthous UlcersInsomniaFatigueSurgical History Surgery Date(Month/Year) Biopsy of recurrent lipoma C- SEctionbilateral hip surgeryT and [place] (left) surgerywisdom teeth
--- OUTSIDE RECORDS SUMMARY | 2025-07-29 10:46 | XMS_ITS | CCD ---
Author Organization [facility] CliniSymo Care Team Providers Care Yard Supervisor Cotton Gin Name Role Phone LINDY, DR MOORE Admitting [...] PALM Consulting Unavailable REFUGIO GUILLAUME Attending Unavailable ZALTZ, SHANTELL Referring Unavailable REFUGIO GUILLAUME Attending Unavailable ZALTZ, SHANTELL Referring Unavailable MEINERT, RHEA P Referring Unavailable HOY, NÉSTOR M Primary Care Unavailable MYNORY, NÉSTOR M Primary Care Unavailable MEINERT, RHEA Referring Unavailable MEINERT, RHEA Referring Unavailable HOY, NÉSTOR M Primary Care Unavailable MEINERT, RHEA Referring Unavailable HOY, NÉSTOR M Primary Care Unavailable Problems Active Problems Problem ClassificationProblemDateDocumented DateEpisodic/ChronicMenstrual disorders (1 source)Irregular menstruation, unspecified; Translations: [Irregular menstruation, unspecified]Onset: 85-29-2992VpwcldvYfqcvscpevns breast conditions (3 sources)Nipple discharge; Translations: [Mastodynia]Onset: 14-05-6752Knlipbcr Unclassified (2 sources)CONTACT W/AND (SUSP) EXPOS COVID-19; Translations: [CONTACT W/AND (SUSP) EXPOS COVID-19]Onset: 83-17-4265Wnojx infection (1 source)COVID-19; Translations: [COVID-19]Onset: 04-14-2022 Past or Other Problems Problem ClassificationProblemDateDocumented DateEpisodic/ChronicDeficiency and other anemia (1 source)Anemia, unspecified; Translations: [ANEMIA UNSPECIFIED]Onset: 32-34-0547WvjhamzmPfpexzvc mellitus without complication (1 source)Other abnormal glucose; Translations: [OTHER ABNORMAL GLUCOSE]Onset: 10-43-0106ClbapztoDhoajrz and fatigue (4 sources)Other fatigue; Translations: [OTHER FATIGUE]Onset: 38-65-6122Gijkrsun Other and unspecified benign neoplasm (4 sources)Benign lipomatous neoplasm of skin and subcutaneous tissue of head, face and neck; Translations: [MELE LIPOMAT COURTNEY SKIN SUBQ HEAD NECK]Onset: 80-66-6172BnfhqzeoQhmswyjp codes; unclassified (1 source)Insomnia, unspecified; Translations: [INSOMNIA UNSPECIFIED]Onset: 10-05-5275HztvznndEgctvwzyrrrg (1 source)CONTACT W/AND (SUSP) EXPOS COVID-19; Translations: [CONTACT W/AND (SUSP) EXPOS COVID-19]Onset: 04-11-2022 Results Test NameValueInterpretationReference RangeFacilityT4 FREE AND TSHon 11-26-2024 T4 - FREE1.17 UG/DLNormal(0.78 - 2.35)[facility] HospitalComment on above:Order Comment: FACILITY: [facility] [id number] By: #### T4FTSH #### [facility] [address] [facility], [address] TSH Qn1.70 m[IU]/LNormal(0.470 - 4.680)[facility] Comment on above:Order Comment: FACILITY: [facility] [id number] By: #### T4FTSH #### [facility] [address] [facility], [address] US NON OB TRANSVAGINALon 98-36-3361ZN NON OB TRANSVAGINALEXAMINATION: PELVIC ULTRASOUND 08/20/2024 2:43 pm TECHNIQUE: Transabdominal [...] Signed by: Teresa Ron MD 08/21/24 Final resultNormalMercy Palo Verde HospitalUS PELVIS COMPLETEon 35-04-1283VD PELVIS COMPLETEEXAMINATION: PELVIC ULTRASOUND 08/20/2024 2:43 pm TECHNIQUE: Transabdominal [...] Signed by: Teresa Ron MD 08/21/24 Final resultNormalMercy Palo Verde HospitalT3 FREE, T4 FREE AND TSHon 33-90-9335Ueoc T3 [Mass/Vol]3.69 pg/mLNormal(2.32 - 6.09)[facility] HospitalComment on above:Order Comment: FACILITY: [facility] [id number] Comment: HEMOLYSIS PRESENT; VALIDITY OF RESULTS SHOULD BE DETERMINED BY CLINICAL JUDGEMENT.Performed By: #### TSHT34, TESTOS #### [facility] [address] [facility], [address] T4 - FREE1.11 UG/DLNormal(0.78 - 2.35)[facility] Comment on above:Order Comment: FACILITY: [facility] [id number] By: #### TSHT34, TESTOS #### [facility] [address] [facility], [address] TSH Qn1.77 m[IU]/LNormal(0.470 - 4.680)[facility] Comment on above:Order Comment: FACILITY: [facility] [id number] By: #### TSHT34, TESTOS #### [facility] [address] [facility], [address] TOTAL TESTOSTERONEon 72-27-5272Sywldbozixvm [Mass/Vol] 42.8 ng/dLNormal(5.7 - 77.0)[facility] HospitalComment on above:Result Comment: TESTOSTERONE, TOTAL FEMLAES: NORMAL MENSTRUAL CYCLES 5.71 - 77 NG/DL MALES: AGE 20 - 49 YEARS 132 - 813 NG/DL AGE >OR= 50 YEARS 102 - 623 NG/DLPerformed By: #### TSHT34, TESTOS #### [facility] [address] [facility], [address] MAM TERESA DIGITAL DIAGNOSTIC BILATERALon 74-15-7436JJD TERESA DIGITAL DIAGNOSTIC BILATERALEXAMINATION: DIAGNOSTIC DIGITAL BILATERAL BREASTS MAMMOGRAM WITH TOMOSYNTHESIS; [...] to the patient regarding the results. [employer] recommends annual mammograms for women 40 years and older. Interpreted by: Lela Magaña MD Signed by: Lela Magaña MD 05/17/[address] Peter HospitalUS BREAST LIMITED LEFTon 44-85-9515NN BREAST LIMITED LEFTEXAMINATION: DIAGNOSTIC DIGITAL BILATERAL BREASTS MAMMOGRAM WITH TOMOSYNTHESIS; [...] to the patient regarding the results. [employer] recommends annual mammograms for women 40 years and older. Interpreted by: Lela Magaña MD Signed by: Lela Magaña MD 05/17/[address] Peter HospitalFREE T3on 42-51-4556Tiai T3 [Mass/Vol] 4.23 pg/mLHigh2.50-3.90ProSouthwest General Health Centerca [facility] HospitalComment on above:Performed By: #### 3016-3, 3051-0, 3024-7, 2842-3, 8099-4 #### [facility] ([id number]) [address], [address] [place], [place] [address]AFJB T4on 49-14-5129Tyqi T4 [Mass/Vol]0.94 ng/dLNormal0.61-1.60 [facility] CenterComment on above:Performed By: #### 3016-3, 3051-0, 3024-7, 2842-3, 8099-4 #### [facility] ([id number]) [address], [address] [place], [place] [address]Grvsbzkut [Mass/Vol]on 02-47-2827JXVGGIQTU7.5 ng/mLNormal 3.3-26.7ProBlanchard Valley Health SystemComment on above:Performed By: #### 3016-3, 3051-0, 3024-7, 2842-3, 8099-4 #### [facility] ([id number]) [address], [address] [place], [place] [address]ZPHTHKTMBXNWNRJ ABon 42-16-9561JYP Ab Qn19 [IU]/mLHigh<10 ProMOur Lady of Mercy HospitalComment on above:Performed By: #### 3016-3, 3051-0, 3024-7, 2842-3, 8099-4 #### [facility] ([id number]) [address] [place], [place] [address]WGG Qnon 91-81-1696RCK0.97 uIU/mLNormal0.49-4.67[facility] HospitalCommymichigan medical center sag[facility] on above:Performed By: #### 3016-3, 3051-0, 3024-7, 2842-3, 8099-4 #### [facility] ([id number]) [address], [address] [place], [place] [address]Wlvhr-54 PCR (CVDTB)on 06-43-8679EZEQ-CoV-2 (COVID-19) RNA MANUELA+probe Ql (Unsp spec)DetectedCritically abnormalNOT DETECTEDThe St. [facility]'S HospitalCommymichigan medical center saginaw on above:Result Comment: This test is not yet approved or cleared by the [place] FDA. When there are no FDA-approved or cleared tests available, and other criteria are met, FDA can make tests available under an emergency access mechanism called an Emergency Use Authorization (EUA). The EUA for this test is supported by the [employer] Examiner of Health and Human Service's declaration that circumstances exist to justify the emergency use of in vitro diagnostics for the detection and/or diagnosis of the virusthat causes COVID-19. This EUA will remain in effect for the duration of the COVID-19 declaration ju stifying emergency of IVDs, unless it is terminated or revoked by the FDA (after which the test mayno longer be used).Performed By: #### CVDTBH #### [facility] [address] [place] [address] Dr. Isael SimonAmbulatory Clinical Summaryon 36-78-7047Ohgkpadglp Clinical Summary{j5-92-18-05-64-21-69-0i-sy-g3-ed-22-24-9b-76-ff}CD:[id number] Health SystemGeneral Surgery Office/Clinic Noteon 38-86-0375Yingeht Surgery Office/Clinic NoteChief Complaint post operative follow up HPI Staff [...] swallowing difficulties, no hearing loss, no ear infection(s),no nose bleeds. Cardiovascular: normal blood pressure, no [...] Recorded SARS-CoV-2 (COVID-19) mRNA BNT-162b2 vax 04/28/2021 RecordedKettering Memorial HospitalComment on above:Result Comment: Electronically Signed By: LINDY OSULLIVAN, Teresa Hickman\Date and Time Signed: 06/22/21 10:23 EDTPathology Noteon 83-21-5670Rympcgktj [id number]#1.00CD:[address] [place], [place] [address]Operative Reporton 98-70-6399Volggzdih Report [id number]#1.00CD:[address] [place], [place] [address]Provider Letter FTMCon 58-53-6530Zvlcrxwb Letter FTPARK SANITARIUMeptember 2020 JOSEPH MOISE, [address], [place] [address] Re: JW MARSH Date of : 1990 Thank you for your referral of Jw Marsh who was seen on consultation on May 22, 2021, for nodule posterior neck. An excision is planned. I have enclosed my consultation note for your review. I will be happy to follow Jw. Sincerely, Teresa Tovar MD General SurgeryNoProMedica Fostoria Community HospitalConsent for Procedure/Surgeryon 54-05-7595Myfvhta for Procedure/Surgery [id number]#1.00CD:[address] [place], [place] [address]Consenton 94-44-2382Hsasbbd [id number]#1.00CD:[address] [place], [place] [address]Historical Records Officeon 14-08-3159Yrtlzajpqy Records Office [id number]#1.00CD:127NoProMedica Fostoria Community HospitalCBC AUTO DIFFon 16-61-8830VUHI #0.0 103/ulNormal0.0-0.1The St. Anthony'S HospitalComment on above:Performed By: #### CBC #### [facility] [address] [address] Sabrina KarenBasophils/100 WBC (Bld)0.6 %Normal0.2-2.0The [facility] Comment on above:Performed By: #### CBC #### [facility] [address] [address] Sabrina KarenEO #0.1 103/ulNormal0.0-0.7The St. Anthony'S HospitalComment on above: Performed By: #### CBC #### [facility] [address] [address] Sabrina KarenEosinophils/100 WBC (Bld)0.8 %Critically low0.9-7.0The St. Anthony'S HospitalComment on above:Performed By: #### CBC #### [facility] [address] [address] Sabrina KarenErythrocyte distribution width (RBC) [Ratio]12.5 %Bpbugh12.0-15.0The St. Anthony'S HospitalComment on above:Performed By: #### CBC #### [facility] [address] [place] [address] Sabrina KarenHematocrit (Bld) [Volume fraction]43.1 %Lwkyoi81.0-48.0The [facility]. [facility]'S HospitalComment on above:Performed By: #### CBC #### [facility] [address] [address] Sabrina KarenHemoglobin (Bld) [Mass/Vol]14.1 g/uDUnrbla92.0-16.0The St. [facility]'S HospitalComment on above:Performed By: #### CBC #### [facility] [address] [place] [address] Sabrina KarenIG #0.02 10e3/ulNormal0.00-0.03The St. [facility]'S HospitalComment on above:Performed By: #### CBC #### [facility] [address] [place] [address] Sabrina DasenIG %0.3 %Normal0.0-0.5The St. Anthony'S HospitalComment on above: Performed By: #### CBC #### [facility] [address] [place] [address] Sabrina DasenLYMPH #2.0 103/ulNormal1.2-3.8The St. Anthony'S HospitalComment on above: Performed By: #### CBC #### [facility] [address] [place] [address] Sabrina DasenLymphocytes/100 WBC (Bld)27.9 %Cdxyjo00.5-60.0[facility] Comment on above:Performed By: #### CBC #### [facility] [address] [place] [address] Sabrina KarenMANUAL DIFF REQNONormalThe St. Anthony'S HospitalComment on above: Performed By: #### CBC #### [facility] [address] [place] [address] Sabrina KarenMCH (RBC) [Entitic mass]29.3 buAadovx83.7-34.0[facility] Comment on above:Performed By: #### CBC #### [facility] [address] [place] [address] Sabrina KarenMCHC (RBC) [Mass/Vol]32.7 g/wBPkfypq85.9-35.2[facility] Comment on above:Performed By: #### CBC #### [facility] [address] [place] [address] Sabrina KarenMCV (RBC) [Entitic vol]89.6 sWVexiaw25.0-99.0[facility] Comment on above:Performed By: #### CBC #### [facility] [address] [place] [address] Sabrina KarenMONO #0.4 103/ulNormal0.3-0.8The St. Anthony'S HospitalComment on above: Performed By: #### CBC #### [facility] [address] [place] [address] Sabrina KarenMonocytes/100 WBC (Bld)5.9 %Normal1.7-12.0The [facility] Comment on above:Performed By: #### CBC #### [facility] [address] [place] [address] Sabrina KarenNEUT #4.6 103/ulNormal1.4-6.5The [facility]. [facility]'S HospitalComment on above: Performed By: #### CBC #### [facility] [address] [place] [address] Sabrina KarenNeutrophils/100 WBC (Bld)64.5 %Vddvll90.0-75.0The [facility] Comment on above:Performed By: #### CBC #### [facility] [address] [place] [address] Sabrina KarenPlatelet mean volume (Bld) [Entitic vol]9.1 fLCritically low9.5-13.[address] [facility]'S HospitalComment on above:Performed By: #### CBC #### [facility] [address] [place] [address] Sabrina MxcixILN644 103/sfUlyxri676-268Rym St. Anthony'S HospitalComment on above: Performed By: #### CBC #### [facility] [address] [place] [address] Sabrina KarenRBC4.81 106/ulNormal4.20-5.40The St. [facility]'S HospitalComment on above: Performed By: #### CBC #### [facility] [address] [place] [address] Sabrina KarenWBC7.1 103/ulNormal4.0-11.0The [facility]. [facility]'S HospitalComment on above: Performed By: #### CBC #### [facility] [address] [place] [address] Sabrina KarenFREE THYROXINE INDEX T7on 12-60-7010IRJ4.86NormalThe St. Anthony'S HospitalComment on above:Performed By: #### CMP, TSH, T7 #### [facility] [address] [address] Sabrina KhegeE9V88.0 %Fwhpeo96.5-40.5The St[facility]'S HospitalComment on above: Performed By: #### CMP, TSH, T7 #### [facility] [address] [address] Sabrina KarenT4 [Mass/Vol]8.40 ug/dLNormal5.53-11.00The St. [facility]'S HospitalComment on above:Performed By: #### CMP, TSH, T7 #### [facility] [address] [address] Sabrina KarenGLYCOHEMOGLOBIN A1Con 68-15-1629ZTZ RECOMMENDATIONADA THERAPEUTIC TARGET 6.0 - 7.0 ACTION SUGGESTED > 7.0NormKnox Community HospitalComment on above:Performed By: #### A1C #### [facility] [address] [place] [address] Sabrina KarenGlucose [Mass/Vol]105 mg/dLNormalThMercy Health Urbana HospitalComment on above:Performed By: #### A1C #### [facility] [address] [place] [address] Sabrina JghfjLpW8r (Bld) [Mass fraction]5.3 %Normal<=6.0The [facility] Comment on above:Performed By: #### A1C #### [facility] [address] [place] [address] Sabrina KarenIRONon 70-30-6179Xhsc [Mass/Vol]84.0 ug/wNLakvck64.0-170.0The [facility]'S HospitalComment on above:Performed By: #### IRON #### [facility] [address] [place] [address] Sabrina KarenPROF 14(COMP METB)on 30-80-5888Owhnbqh [Mass/Vol]3.9 g/dLNormal 3.5-5.0The [facility]S HospitalComment on above:Performed By: #### CMP, TSH, T7 #### [facility] [address] [place], [place] [address] Sabrina KarenAlbumin/Globulin [Mass ratio]1.1 {ratio}NormalC[facility] Clinic Mercy Hospital Comment on above:Performed By: #### CMP, TSH, T7 #### [facility] [address] [place], [place] [address] Sabrina KarenALP [Catalytic activity/Vol]52 U/ZSotthk06-200PpgCleveland Clinic Mercy Hospital Comment on above:Performed By: #### CMP, TSH, T7 #### [facility] [address] [id number] Sabrina KarenALT [Catalytic activity/Vol]19 U/LNormal9-52[facility] Comment on above:Performed By: #### CMP, TSH, T7 #### [facility] [address] [place], [place] [address] Sabrina KarenAnion gap [Moles/Vol]13.7 mmol/LNormalCleveland Clinic Mercy HospitalComment on above:Performed By: #### CMP, TSH, T7 #### [facility] [address] [place], [place] [address] Sabrina KarenAST [Catalytic activity/Vol]14 U/SRdrekv93-52WzdCleveland Clinic Mercy Hospital Comment on above:Performed By: #### CMP, TSH, T7 #### [facility] [address] [place], [place] [address] Sabrina KarenBilirubin [Mass/Vol]0.9 mg/dLNormal0.2-1.3TC[facility] Comment on above:Performed By: #### CMP, TSH, T7 #### [facility] [address] [place], [place] [address] Sabrina KarenCalcium [Mass/Vol]8.9 mg/dLNormal8.4-10.2[facility] Comment on above:Performed By: #### CMP, TSH, T7 #### [facility] [address] [place], [place] [address] Sabrina KarenChloride [Moles/Vol]105 mmol/HNktrqa17-863ForCleveland Clinic Mercy Hospital Comment on above:Performed By: #### CMP, TSH, T7 #### [facility] [address] [place], [place] [address] Sabrina KarenCO2 [Moles/Vol]29.3 mmol/QOpfvuc16.0-30.0The [facility] Comment on above:Performed By: #### CMP, TSH, T7 #### [facility] [address] [place] [address] Sabrina KarenCreatinine [Mass/Vol]0.79 mg/dLNormal0.52-1.04The [facility] Comment on above:Performed By: #### CMP, TSH, T7 #### [facility] [address] [place] [address] Sabrina KarenEGFR-AF ZAMBIAN=60Normal>=60The [facility]'S HospitalComment on above: Performed By: #### CMP, TSH, T7 #### [facility] [address] [place] [address] Sabrina KarenEGFR-NON AF ZAMBIAN>60Normal>=60The [facility]'S HospitalComment on above:Performed By: #### CMP, TSH, T7 #### [facility] [address] [place] [address] Sabrina KarenGlobulin (S) [Mass/Vol]3.6 g/dLNormalThe St. [facility]'S HospitalComment on above:Performed By: #### CMP, TSH, T7 #### [facility] [address] [place] [address] Sabrina KarenGlucose [Mass/Vol]97 mg/bKEqhrtj78-168Lhk St. [facility]'S HospitalComment on above:Performed By: #### CMP, TSH, T7 #### [facility] [address] [place] [address] Sabrina KarenPotassium [Moles/Vol]4.0 mmol/LNormal3.4-5.0The [facility] Comment on above:Performed By: #### CMP, TSH, T7 #### [facility] [address] [place] [address] Sabrina KarenProtein [Mass/Vol]7.5 g/dLNormal6.1-8.2The [facility]'S HospitalComment on above:Performed By: #### CMP, TSH, T7 #### [facility] [address] [address] Sabrina KarenSodium [Moles/Vol]144 mmol/FMovcza357-590Njs [facility] Comment on above:Performed By: #### CMP, TSH, T7 #### [facility] [address] [place] [address] Sabrina KarenUrea nitrogen [Mass/Vol]7.0 mg/dLNormal7.0-17.0[facility] Comment on above:Performed By: #### CMP, TSH, T7 #### [facility] [address] [place] [address] Sabrina KarenUrea nitrogen/Creatinine [Mass ratio]8.9 mg/mgThe University of Toledo Medical CenterComment on above:Performed By: #### CMP, TSH, T7 #### [facility] [address] [place] [address] Sabrina KarenTSHon 51-49-8444KOF3.525 uIU/mLNormal0.470-4.680The St[facility]'S HospitalComment on above:Performed By: #### CMP, TSH, T7 #### [facility] [address] [place] [address] Sabrina KarenTSH RANGESEE BELOWThe University of Toledo Medical CenterComment on above:Result Comment: <0.34 UIU/ml HYPERTHYROID 0.34-5.60 UIU/ml EUTHYROID >5.60 UIU/ml HYPOTHYROIDPerformed By: #### CMP, TSH, T7 #### [facility] [address] [place] [address] Sabrina KarenPhysician Referralon 97-51-1360Ppwofapxw Referral [id number]#1.00CD:127[facility] Encounters Encounter DateEncounter TypeCare ProviderFacilityStart: 08-20-2024 End: 43-33-4969fxupkojnjhBGVHKettering Health Main Campustart: 05-17-2024 End: 30-28-4171hpciugqyjnMERPCity Hospitaltart: 05-11-2024 End: 71-32-7959gbjyoofgnaWVJE P MEINERTProMedica Hummelstown HospitalStart: 07-29-2023 End: 54-67-3224veodeyyqlgNBYEIFMN WRIGHTNot AvailableStart: 07-22-2023 End: 98-11-1415kiwedxldinBNRDBVIH WRIGHTNot AvailableStart: 04-11-2022 End: 81-17-0703klmrccuiloPY NÉSTOR HOYFacility:V1Ypfzj: 06-13-2021 End: 84-69-4536sbmjrzpswlVM TERESA NILLFacility:E8Uhymh: 05-11-2021 End: 97-91-6950fgrewmdhiqLP NÉSTOR HOYFacility:H1 Payers DatePayer CategoryPayerPolicy [id number] 2..1.372930.3.57[id number] 2..1.702964.3.57[id number] 2.0.1.507364.3.579.2.764359-07-8777Aatluhz74305 2.0.1.739570.3.57[id number] 2..1.885007.3.57[id number] 2..1.210120.3.57[id number] 2..1.056239.3.57[id number] 2.840.1.936701.3.579.[id number] Clinical Note 06-13-2021 Note Date & TmemQzrjPqzufopq39-32-1176 NoteOPERATIVE NOTE OPERATION DATE: 06-13-21 ANESTHETIC:Local with 0.25% [...] 1 week for wound check. cc:Dr. Ward. [facility] Signed and Approved by: DR TERESA TOVAR . 06/18/2021 19:31:00[facility] Clinical Note 05-22-2021 Note Date & ZpvyBphhTgkdugak16-42-7845 NoteChief Complaint consultation for nodule posterior neck HPI Staff 31 year old female presents on consultation from Melissa Moise NP for nodule posterior neck. Had priorlipoma removal to this area January 2019. Feels [...] swallowing difficulties, no hearing loss, no ear infection(s),no nose bleeds. Cardiovascular: normal blood pressure, no [...] Recorded SARS-CoV-2 (COVID-19) mRNA BNT-162b2 vax 04/28/2021 RecordedGeorgetown Behavioral HospitalComment on above:Result Comment: Electronically Signed By: Teresa TOVAR MD\Date and Time Signed: 05/22/21 14:30 EDT Summary [...] section and content) DATE CREATED AUTHOR 06/23/2021 [facility] DATE CREATED AUTHOR AUTHOR'S ORGANIZ ATION 04/14/2022 [facility] DATE CREATED AUTHOR AUTHOR'S ORGANIZ ATION 07/31/2023 [facility] DATE CREATED AUTHOR AUTHOR'S ORGANIZ ATION 05/12/2024 [facility] DATE CREATED AUTHOR AUTHOR'S ORGANIZ ATION 05/20/2024 [facility] DATE CREATED AUTHOR AUTHOR'S ORGANIZ ATION 08/23/2024 [facility] DATE CREATED AUTHOR AUTHOR'S ORGANIZ ATION 12/02/2024 [facility] FOR RECORDS PERTAINING TO PATIENTS WHO [...] BE BASED ON THE PRIMARY CLINICAL RECORDS. [employer] provides no warranty or guarantee of the accuracy or completeness of information in this document.
== END 2025-07-29 10:38 | disposition home or self-care (01) ==
LOC: FHNEUROLOG 10:38
PROVIDERS: PCP Family Medicine; Visit Provider Psychiatry & Neurology Neurology
DX: G47.33 Obstructive sleep apnea (adult) (pediatric) (principal)
CPT/HCPCS: G0463